=== PATIENT | female | born 1945 | race Caucasian/White ===

== ENCOUNTER 2019-11-17 15:37 | Outpatient (CLI) | payer MEDICARE, SELFPAY ==
--- NOTE | ~2019-11-17 | MM_ITS ---
EXAMINATION: MM screening [facility] BI w jose HISTORY: Screening mammogram TECHNIQUE: Craniocaudal and mediolateral oblique 3-D tomosynthesis images were obtained and synthetic 2-D images were generated. CAD analysis was submitted and interpreted. COMPARISON: 07/02/2018, 06/13/2017, 06/04/2016 BREAST PARENCHYMAL COMPOSITION: There are scattered areas of fibroglandular density. FINDINGS: There is no evidence of suspicious mass, calcification, or architectural distortion to sugg est malignancy in either breast. There has been no suspicious interval change. IMPRESSION: 1. No mammographic evidence of malignancy. 2. Recommend routine screening mammography in one year. BI-RADS Category 1: Negative Reviewed, dictated and finalized at location A. LLIGENCE RESEARCH SPECIALIST
== END 2019-11-17 15:38 | disposition home or self-care (01) ==
PROVIDERS: PCP Family Medicine; Visit Provider Obstetrics & Gynecology
DX: Z12.31 Encounter for screening mammogram for malignant neoplasm of breast (principal)
CPT/HCPCS: 77063; 77067

== ENCOUNTER 2021-02-19 14:37 | Outpatient (CLI) | payer MEDICARE, SELFPAY ==
--- NOTE | ~2021-02-19 | MM_ITS ---
EXAMINATION: MM screening [facility] BI w jose HISTORY: Screening mammogram TECHNIQUE: Craniocaudal and mediolateral oblique 3-D tomosynthesis images were obtained and synthetic 2-D images were generated. CAD analysis was submitted and interpreted. COMPARISON: Numerous , 06/2018, 06/11/2017 bilateral digital screening mammogram examinatio ns BREAST PARENCHYMAL COMPOSITION: There are scattered areas of fibroglandular density. FINDINGS: There is no evidence of suspicious mass, calcification, or architectural distortion to sugg est malignancy in either breast. There has been no suspicious interval change. IMPRESSION: 1. No mammographic evidence of malignancy. 2. Recommend routine screening mammography in one year. BI-RADS Category 1: Negative Reviewed, dictated and finalized at location A.
== END 2021-02-19 14:38 | disposition home or self-care (01) ==
LOC: ANHIMG 14:42
PROVIDERS: PCP Nurse Practitioner Family; Visit Provider Obstetrics & Gynecology
DX: Z12.31 Encounter for screening mammogram for malignant neoplasm of breast (principal)
CPT/HCPCS: 77063; 77067

== ENCOUNTER → 2021-03-08 14:57 | Outpatient (REF) | payer MEDICARE, SELFPAY | LOC: ANHLAB 14:57 | PROVIDERS: PCP Nurse Practitioner Family; Visit Provider Nurse Practitioner | DX: D49.2 Neoplasm of unspecified behavior of bone, soft tissue, and skin (principal); L57.0 Actinic keratosis | CPT/HCPCS: 88305 ==

== ENCOUNTER 2021-12-27 08:42 | Outpatient (CLI) | payer MEDICARE, SELFPAY ==
--- NOTE | 2021-12-27 08:58 | ECHO_ITS ---
Patient Info Name: Alejandrina Kim Age: 76 years : 1945 Gender: Female Ht: 64 in Wt: 160 lbs BSA: 1.83 m2 HR: 60 bpm BP: 171 / 97 mmHg Technical Quality: Good Exam Date: 12/27/2021 9:07 AM Exam Location: [facility] Patient Status: Outpatient Admit Date: 12/27/2021 Staff Ordering Physician: Lolly Cheng NP Field Sampling Technician: Carmelita Eldridge RDCS Attending Provider: Lolly Cheng NP Referring Physician: Prosper MUNOZ; Exam Type: CA echo doppler color flow Study Info Indications R01.1 - Cardiac murmur, unspecified Complete two-dimensional, color flow and Doppler transthoracic echocardiogram is performed. Summary 1. Complete two-dimensional, color flow and Doppler transthoracic echocardiogram is performed. 2. Left ventricular chamber dimension is normal. 3. Left ventricular systolic function is normal, estimated at 60-65%. 4. The left ventricular diastolic function is abnormal. 5. E/e' 21 is elevated. 6. Global longitudinal strain is normal at -17.4%. 7. Left atrial chamber dimension is moderately enlarged. 8. There is mild aortic valve sclerosis. 9. There is mild aortic valve regurgitation. 10. There is mild mitral valve regurgitation. 11. There is mild tricuspid valve regurgitation. 12. No pulmonary hypertension, estimated pulmonary arterial systolic pressure is 30 mmHg. Left Ventricle E/e' 21 is elevated. Global longitudinal strain is normal at -17.4%. Left ventricular chamber dimension is normal. Left ventricular systolic function is normal, estimated at 60-65%. The left ventricular diastolic function is abnormal. Right Ventricle Right ventricular chamber dimension is normal. Right ventricular systolic function is normal. Left Atria Left atrial chamber dimension is moderately enlarged. Right Atria Right atrial chamber dimension is normal. Aortic Valve The aortic valve is trileaflet. There is mild aortic valve sclerosis. There is no aortic valve stenosis. There is mild aortic valve regurgitation. Pulmonic Valve There is no pulmonic regurgitation. Mitral Valve There is no mitral valve stenosis. There is mild mitral valve regurgitation. Tricuspid Valve There is mild tricuspid valve regurgitation. No pulmonary hypertension, estimated pulmonary arterial systolic pressure is 30 mmHg. Pericardium/Pleural There is no pericardial effusion. Inferior Vena Cava Normal inferior vena cava with >50% collapse upon inspiration consistent with normal right atrial pressure, 5 mmHg. Aorta The aortic root size at the sinus of Valsalva is normal. Left Ventricular Outflow Tract Name Value Normal LVOT 2D LVOT Diameter 2.0 cm LVOT Doppler LVOT Peak Gradient 5 mmHg LVOT Mean Gradient 2 mmHg LVOT VTI 26 cm LVOT VTI/AV VTI Ratio 0.7 LVOT Stroke Volume 84 ml LVOT CO 4.4 l/min LVOT CI 2.4 l/min/m2 Pulmonic Valve
== END 2021-12-27 08:43 | disposition home or self-care (01) ==
LOC: ANHCARD 08:44
PROVIDERS: PCP Nurse Practitioner Family; Visit Provider Nurse Practitioner Family
DX: R01.1 Cardiac murmur, unspecified (principal); I08.3 Combined rheumatic disorders of mitral, aortic and tricuspid valves
CPT/HCPCS: 93306

== ENCOUNTER 2022-03-09 16:40 | Emergency (ER) | payer MEDICARE, SELFPAY ==
[2022-03-09 16:47] VITALS: BP 187/83; PULSE 87; RESP 16; TEMP 37.1; O2SAT 100
--- NOTE | 2022-03-09 16:57 | ED.GENADULT ---
HPI - General Adult General Chief complaint: Allergic Reaction Stated complaint: bee sting Time Seen by Provider: 03/09/22 16:46 Source: RN notes reviewed History of Present Illness HPI narrative: Patient presents emergency department from home for a bee sting. 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 and has an EpiPen but states that she did not use her EpiPen she denies any current shortness of breath or hives she denies swelling of the lips or tongue states she not take any medication at home patient does states she has swelling and erythema to her right finger Related Data Home Medications Medication Instructions Recorded Confirmed estradiol 2 mg tablet 2 mg PO DAILY 03/27/20 01/28/22 Allergies Allergy/AdvReac Type Severity Reaction Status Date / Time bee venom protein (honey bee) Allergy Intermediate Anaphylaxis Verified 03/09/22 17:19 Review of Systems Review of Systems: Gen.: Denies fevers or chills ENT: Denies congestion denies swelling of the lips or tongue Respiratory: Denies shortness of breath CV: Denies chest pain or palpitations GI: Denies abdominal pain nausea, emesis Musculoskeletal: See HPI Neuro: Denies numbness, tingling, weakness or focal weakness Skin: Denies rash Except as documented, all other systems reviewed and negative PMF Past Medical History Medical History Anxiety and depression (~1973) Arthralgia Benign essential hypertension (~1968) GERD without esophagitis (~2015) HLD (hyperlipidemia) (~2009) Lumbar back pain with radiculopathy affecting right lower extremity Menopause (~1999) Seasonal allergies Surgical History Surgical History S/P arthroscopy of knee (~1997) right S/P tonsillectomy (~1960) S/P vaginal hysterectomy (~1984) Family History Family History Mother Hypertension Grandparent Hypertension Diabetes mellitus Father Black lung disease Grandparent Diabetes mellitus Sibling Cancer Social History Social History Social History: (2019) Smoking status: Never smoker Alcohol intake: never Substance use: never Gender identity (if verbalized by the patient): Female Sexual Orientation (if Verbalized by the Patient): Straight or Heterosexual Spiritual care concerns: No Agree to blood products: Yes Exam Narrative: APPEARANCE: No acute distress, nontoxic, resting in bed EYES: EOMI HEENT: Normocephalic, atraumatic, OMM no swelling of the lips or tongue airway patent RESPIRATORY: No respiratory distress Clear to auscultation bilaterally with no rhonchi wheezing or rales. CARDIOVASCULAR: Regular rate and rhythm without murmurs rubs or gallops. ABDOMINAL: Soft, nontender, nondistended, no rebound or guarding MUSCULOSKELETAl: Moves all extremities. No clubbing, cyanosis or edema. The right middle finger has swelling erythema over the distal aspect down to the DIP joint, no stinger seen capillary refill less than 3 seconds remainder of the hand is normal-appearing NEURO: Awake and alert. Following commands, speech normal, no focal deficits SKIN:: Warm, dry. No rashes lesions or abrasions PSYCHIATRIC: Normal affect/mood, Course Course Emergency Course: Patient remained monitored in the emergency department. No sign of lips or tongue no shortness of breath no generalized hives feel she may be discharged this time follow-up as an outpatient she does have EpiPen at home Vital Signs Vital signs: Vit
[2022-03-09] MEDS: diphenhydrAMINE HCl CAP 25 MG CAPSULE PO (17:10)
[2022-03-09] MEDS: FAMOTIDINE 20 MG TABLET PO (17:10)
[2022-03-09] MEDS: predniSONE 20 MG TABLET 60 MG PO (17:10)
== END 2022-03-09 19:03 | disposition home or self-care (01) ==
PROVIDERS: Emergency Provider Emergency Medicine; PCP Family Medicine
DX: T63.441A Toxic effect of venom of bees, accidental (unintentional), initial encounter (principal); I10 Essential (primary) hypertension; E78.5 Hyperlipidemia, unspecified; K21.9 Gastro-esophageal reflux disease without esophagitis
CPT/HCPCS: 99283; A9270; J7512

== ENCOUNTER 2022-04-25 13:32 | Outpatient (CLI) | payer MEDICARE, SELFPAY ==
--- NOTE | ~2022-04-25 | DEXA_ITS ---
Bone Density Report Name: NAVEEN JUAREZ Age: 76 Sex: Female Ethnicity: White Date of : 1945 Indication: postmenopausal; screening for osteoporosis; height loss; prior fracture; hysterectomy; Referring Provider: BETHANY NEUMANN Study: Bone densitometry was performed. Exam Date: April 25, 2022 Accession number: [id number] Bone Density: Region BMD T-score Z-score Classification AP Spine(L1-L4) 0.988 -0.5 2.0 Normal Femoral Neck (Left) 0.726 -1.1 1.1 Osteopenia Total Hip (Left) 0.847 -0.8 1.2 Normal Femoral Neck (Right) 0.660 -1.7 0.5 Osteopenia Total Hip (Right) 0.810 -1.1 0.9 Osteopenia Total Hip Mean 0.828 -1.0 1.1 Normal World Health Organization criteria for BMD impression classify patients as: Normal (T-score at or above -1.0), Osteopenia (T-score between -1.0 and -2.5), or Osteoporosis (T-score at or below -2.5). 10-year Fracture Risk(1): Major Osteoporotic Fracture 19% Hip Fracture 4.4% Reported Risk Factors: [place] (), Neck BMD=0.660, BMI=29.1, previous fracture (1) FRAX(R) Version 3.08. Fracture probability calculated for an untreated patient. Fracture probability may be lower if the patient has received treatment. Clinical Information Provided by Patient: Has had a low trauma fracture Has used the following medications: HRT (i.e. estrogen/hormone therapy), Vitamin D Has the following medical conditions: Hysterectomy Patient maximum height was 65 Menopause Age: 39 Onset of menses at age 13 Number of children 2 Impression: The patient has low bone mass, based on the Right Femoral Neck T-score. The patient has an estimated ten-year risk of hip fracture of 4.4% and an estimated ten-year risk of major fracture of 19%, based on the WHO FRAX algorithm. The patient has risk factors, including: previous fracture. Discussion: BONE DENSITY IS LOW AT ONE OR MORE SKELETAL SITES. THE PATIENT'S BMD AND CLINICAL RISK FACTORS CONTRIBUTE TO THIS PATIENT'S INCREASED RISK OF FRACTURE. This patient's lowest T-score is low at one or more skeletal sites. It meets the World Health Organization's (WHO) criteria for ?low bone mass? (T-score between -1.0 and -2.5). The patient's 10-year risk of hip fracture as calculated by FRAX exceeds the threshold where pharmacological therapy is recommended by the National Osteoporosis Foundation (NOF). However, all treatment decisions require clinical judgment and consideration of individual patient factors, including patient preferences, comorbidities, previous drug use, risk factors not captured in the FRAX model (e.g., frailty, falls, vitamin D deficiency, increased bone turnover, interval significant decline in bone density) and possible under or overestimation of fracture risk by FRAX. The patient should follow a healthful lifest
--- NOTE | ~2022-04-25 | MM_ITS ---
EXAMINATION: MM screening [facility] BI w jose HISTORY: Screening mammogram TECHNIQUE: Craniocaudal and mediolateral oblique 3-D tomosynthesis images were obtained and synthetic 2-D images were generated. CAD analysis was submitted and interpreted. COMPARISON: 02/15/2021, , 07/02/2018 bilateral screening mammogram examinations BREAST PARENCHYMAL COMPOSITION: There are scattered areas of fibroglandular density. FINDINGS: Subtle possible microcalcifications versus artifacts are noted posteriorly in the inner lef t breast on CC view. Diagnostic left mammogram with magnification views is recommended, with ultrasou nd if required. Otherwise there is no evidence of suspicious mass, calcification, or architectural distortion to sugg est malignancy in either breast. There has been no other suspicious interval change. IMPRESSION: 1. Subtle microcalcifications versus artifacts in the posterior inner left breast on CC projection 2. Diagnostic left mammogram with magnification views is recommended, with ultrasound if required BI-RADS Category 0: Incomplete: Needs additional imaging evaluation. Reviewed, dictated and finalized at location A. IMPRESSION: 1. Subtle microcalcifications versus artifacts in the posterior inner left shawna st on CC projection 2. Diagnostic left mammogram with magnification views is recommended, with ultr asound if required BI-RADS Category 0: Incomplete: Needs additional imaging evaluation.
== END 2022-04-25 13:33 | disposition home or self-care (01) ==
PROVIDERS: PCP Family Medicine; Visit Provider Nurse Practitioner Family
DX: Z12.31 Encounter for screening mammogram for malignant neoplasm of breast (principal); Z78.0 Asymptomatic menopausal state; R92.8 Other abnormal and inconclusive findings on diagnostic imaging of breast; M85.89 Other specified disorders of bone density and structure, multiple sites
CPT/HCPCS: 77063; 77067; 77080

== ENCOUNTER 2022-05-07 12:32 | Outpatient (CLI) | payer MEDICARE, SELFPAY ==
--- NOTE | ~2022-05-07 | MM_ITS ---
EXAMINATION: MM diagnostic [facility] LT w jose HISTORY: Left breast calcifications on screening mammogram TECHNIQUE: Additional 3-Dviews tomosynthesis images of the left breast were performed and synthetic 2 -D images were generated. CAD analysis was submitted and interpreted. COMPARISON: 04/25/2022, 02/19/2021, 11/17/2019 FINDINGS: No suspicious calcifications are identified with magnification views of the left breast. Th ere is no suspicious mass or architectural distortion. IMPRESSION: 1. No mammographic evidence of malignancy. 2. Recommend routine screening mammography in one year. BI-RADS Category 1: Negative Reviewed, dictated and finalized at location A.
== END 2022-05-07 12:33 | disposition home or self-care (01) ==
PROVIDERS: PCP Family Medicine; Visit Provider Nurse Practitioner Family
DX: R92.8 Other abnormal and inconclusive findings on diagnostic imaging of breast (principal)
CPT/HCPCS: 77061; 77065; G0279

== ENCOUNTER 2022-08-13 11:12 | Outpatient (CLI) | payer MEDICARE, SELFPAY | END 2022-08-13 11:13 | disposition home or self-care (01) | PROVIDERS: PCP Family Medicine; Visit Provider Nurse Practitioner Family | DX: L29.0 Pruritus ani (principal) | CPT/HCPCS: 87177; 87209 ==

== ENCOUNTER 2022-12-19 09:17 | Outpatient (CLI) | payer MEDICARE, SELFPAY ==
[2022-12-19 19:02] LABS: Vitamin D 25 Hydroxy 63.5 ng/mL
[2022-12-19 19:30] LABS: Basophils Absolute Auto 0.1 K/mm3 (0.0-0.1); Eosinophils Absolute Auto 0.4 K/mm3 (0-0.3); Hematocrit 41.3 % (37.0-47.0); Hemoglobin 13.2 g/dL (12.0-15.0); Immature Granulocyte Absolute 0.03 K/mm3 (0.00-0.031); Immature Granulocyte Percent A 0.4 % (0-0.5); Lymphocytes Absolute Auto 1.26 K/mm3 (0.9-3.2); Lymphocytes Percent Auto 17.5 % (18.3-44.2); Mean Corpuscular Hemoglobin 29.7 pg (26-34); Mean Platelet Volume 10.3 fl (7.4-10.4); Monocytes Absolute Auto 0.8 K/mm3 (0.1-0.6); Monocytes Percent Auto 10.8 % (2.6-8.5); Neutrophils Absolute Auto 4.6 K/mm3 (1.3-6.7); Neutrophils Percent Auto 64.3 % (45.5-73.1); Platelet Count Result 313 k/mm3 (150-375); Red Blood Count 4.44 M/mm3 (4.2-5.4); White Blood Count 7.2 K/mm3 (4.5-10.0)
[2022-12-19 19:37] LABS: Alanine Aminotransferase 165 U/L (6-35); Albumin Level 4.3 g/dL (3.5-5.1); Alkaline Phosphatase 197 U/L (38-126); Anion Gap 10 mmol/L (8-16); Aspartate Amino Transferase 148 U/L (14-36); Bilirubin,Total 0.6 mg/dL (0.2-1.3); Blood Urea Nitrogen 13 mg/dL (7-17); Calcium 9.1 mg/dL (8.4-10.2); Carbon Dioxide 25 mmol/L (22-30); Chloride 104 mmol/L (98-107); Cholesterol 221 mg/dL (0-200); Estimated Glomerular Filt Rate > 60; Glucose 86 mg/dL (65-110); HDL Direct 85 mg/dL; Potassium 4.1 mmol/L (3.4-5.0); Sodium 139 mmol/L (137-145); Triglycerides 77 mg/dL (<150)
[2022-12-19 19:48] LABS: LDL Cholesterol Direct 92 mg/dL
== END 2022-12-19 09:18 | disposition home or self-care (01) ==
LOC: ANHGOSHLAB 09:18
PROVIDERS: PCP Family Medicine; Visit Provider Nurse Practitioner Family
DX: I10 Essential (primary) hypertension (principal); E55.9 Vitamin D deficiency, unspecified; E78.5 Hyperlipidemia, unspecified; R53.83 Other fatigue
CPT/HCPCS: 36415; 80053; 80061; 82306; 82607; 84443; 85025

== ENCOUNTER 2022-12-26 10:59 | Outpatient (CLI) | payer MEDICARE, SELFPAY ==
[2022-12-26 18:52] LABS: LDL Cholesterol Direct 92 mg/dL
[2022-12-26 20:18] LABS: Alanine Aminotransferase 47 U/L (6-35); Albumin Level 4.2 g/dL (3.5-5.1); Alkaline Phosphatase 152 U/L (38-126); Anion Gap 8 mmol/L (8-16); Aspartate Amino Transferase 27 U/L (14-36); Bilirubin,Total 0.7 mg/dL (0.2-1.3); Blood Urea Nitrogen 14 mg/dL (7-17); Calcium 9.2 mg/dL (8.4-10.2); Carbon Dioxide 29 mmol/L (22-30); Chloride 101 mmol/L (98-107); Cholesterol 203 mg/dL (0-200); Estimated Glomerular Filt Rate > 60; Glucose 92 mg/dL (65-110); HDL Direct 78 mg/dL; Potassium 4.1 mmol/L (3.4-5.0); Sodium 138 mmol/L (137-145); Triglycerides 76 mg/dL (<150)
== END 2022-12-26 11:00 | disposition home or self-care (01) ==
LOC: ANHGOSHLAB 11:00
PROVIDERS: Visit Provider Internal Medicine Cardiovascular Disease
DX: E78.5 Hyperlipidemia, unspecified (principal)
CPT/HCPCS: 36415; 80053; 80061

== ENCOUNTER → 2022-12-26 11:09 | Outpatient (CLI) | payer MEDICARE, SELFPAY ==
--- NOTE | ~2022-12-26 | US_ITS ---
Limited Abdominal Sonogram: Real-time sonographic imaging of the right upper quadrant was performed. Clinical History: Abnormal blood chemistry Findings: The liver appears normal with no evidence of mass lesion or bile duct dilatation. Main por polly vein demonstrates normal direction of flow. The gallbladder is completely filled with shadowing s tones. No definite gallbladder wall thickening. The common bile duct measures 4 mm. The visualized p ancreas, aorta, and IVC are unremarkable. Impression: Cholelithiasis. Reviewed, dictated and finalized at location M. Impression: Cholelithiasis.
== END ==
PROVIDERS: PCP Family Medicine; Visit Provider Family Medicine
DX: R79.89 Other specified abnormal findings of blood chemistry (principal); K80.20 Calculus of gallbladder without cholecystitis without obstruction
CPT/HCPCS: 76705

== ENCOUNTER 2023-05-05 13:36 | Outpatient (CLI) | payer MEDICARE, SELFPAY | END 2023-05-05 13:37 | disposition home or self-care (01) | LOC: ANHGOSHLAB 13:38 | PROVIDERS: PCP Family Medicine; Visit Provider Nurse Practitioner Family | DX: E53.8 Deficiency of other specified B group vitamins (principal) | CPT/HCPCS: 36415; 82607 ==

== ENCOUNTER 2023-05-27 14:00 | Outpatient (CLI) | payer MEDICARE, SELFPAY ==
[2023-05-27 15:31] LABS: Alanine Aminotransferase 16 U/L (6-35); Albumin Level 4.3 g/dL (3.5-5.1); Alkaline Phosphatase 59 U/L (38-126); Aspartate Amino Transferase 32 U/L (14-36); Bilirubin,Total 0.4 mg/dL (0.2-1.3)
[2023-05-27 19:49] LABS: Hepatitis B Surface Antigen Negative (Negative)
[2023-05-27 19:55] LABS: HAV RESULT Negative (Negative); Hepatitis B Core IgM Result Negative (Negative)
[2023-05-27 20:07] LABS: Hepatitis C Virus Antibody Negative (Negative)
== END 2023-05-27 14:01 | disposition home or self-care (01) ==
LOC: ANHGOSHLAB 14:03
PROVIDERS: PCP Family Medicine; Visit Provider Internal Medicine Gastroenterology
DX: R74.01 Elevation of levels of liver transaminase levels (principal)
CPT/HCPCS: 36415; 80074; 80076

== ENCOUNTER → 2023-06-09 12:44 | Outpatient (CLI) | payer MEDICARE, SELFPAY ==
--- NOTE | ~2023-06-09 | CT_ITS ---
EXAMINATION: CT sinus wo con DATE: 06/09/2023 13:03 INDICATION: Altered sense of smell and taste. TECHNIQUE: Computed tomography (CT) of the paranasal sinuses was performed without intravenous contra st. The dose-length product was 370.36 mGy-cm. Automated exposure control and iterative reconstructio n technique were employed. COMPARISON: CT dated 10/12/2004 FINDINGS: There is a air-fluid level with mucosal thickening in the sphenoid sinuses. There is mild e thmoidal mucosal thickening. No mucoperiosteal reaction. Rightward nasal septal deviation. Ostiomeata l units are patent. Mastoids are pneumatized. IMPRESSION: 1. Mild sinusitis. Reviewed, dictated and finalized at location B. IMPRESSION: 1. Mild sinusitis.
== END ==
PROVIDERS: PCP Family Medicine; Visit Provider Otolaryngology
DX: R43.8 Other disturbances of smell and taste (principal); J32.9 Chronic sinusitis, unspecified
CPT/HCPCS: 70486

== ENCOUNTER 2023-07-18 14:43 | Outpatient (CLI) | payer MEDICARE, SELFPAY | END 2023-07-18 14:44 | disposition home or self-care (01) | LOC: ANHAUDASC 14:44 | PROVIDERS: PCP Family Medicine; Visit Provider Otolaryngology | DX: H90.6 Mixed conductive and sensorineural hearing loss, bilateral (principal) | CPT/HCPCS: 92557; 92567 ==

== ENCOUNTER 2023-09-17 13:24 | Outpatient (CLI) | payer MEDICARE, SELFPAY ==
--- NOTE | ~2023-09-17 | MM_ITS ---
EXAMINATION: MM screening [facility] BI w jose HISTORY: Screening mammogram TECHNIQUE: Craniocaudal and mediolateral oblique 3-D tomosynthesis images were obtained and synthetic 2-D images were generated. CAD analysis was submitted and interpreted. COMPARISON: 05/17/2022 diagnostic left mammogram 04/25/2022, 02/15/2021, 11/17/2019 bilateral screening mammogram examinations BREAST PARENCHYMAL COMPOSITION: There are scattered areas of fibroglandular density. FINDINGS: There is no evidence of suspicious mass, calcification, or architectural distortion to sugg est malignancy in either breast. There has been no suspicious interval change. IMPRESSION: 1. No mammographic evidence of malignancy. 2. Recommend routine screening mammography in one year. BI-RADS Category 1: Negative Reviewed, dictated and finalized at location A. ETOLOGIST
== END 2023-09-17 13:25 | disposition home or self-care (01) ==
LOC: ANHIMG 13:31
PROVIDERS: PCP Family Medicine; Visit Provider Obstetrics & Gynecology
DX: Z12.31 Encounter for screening mammogram for malignant neoplasm of breast (principal)
CPT/HCPCS: 77063; 77067

== ENCOUNTER 2023-11-04 15:01 | Outpatient (CLI) | payer MEDICARE, SELFPAY ==
[2023-11-04 20:10] LABS: Alanine Aminotransferase 20 U/L (6-35); Albumin Level 4.1 g/dL (3.5-5.1); Alkaline Phosphatase 64 U/L (38-126); Anion Gap 5 mmol/L (8-16); Aspartate Amino Transferase 37 U/L (14-36); Bilirubin,Total 0.5 mg/dL (0.2-1.3); Blood Urea Nitrogen 14 mg/dL (7-17); Calcium 9.8 mg/dL (8.4-10.2); Carbon Dioxide 30 mmol/L (22-30); Chloride 103 mmol/L (98-107); Estimated Glomerular Filt Rate > 60; Glucose 95 mg/dL (65-110); Potassium 4.1 mmol/L (3.4-5.0); Sodium 138 mmol/L (137-145)
[2023-11-04 20:18] LABS: Basophils Absolute Auto 0.1 K/mm3 (0.0-0.1); Basophils Percent Auto 0.7 % (0.2-1.2); Eosinophils Absolute Auto 0.3 K/mm3 (0-0.3); Eosinophils Percent Auto 3.8 % (0-4.4); Hematocrit 41.6 % (37.0-47.0); Immature Granulocyte Absolute 0.03 K/mm3 (0.00-0.031); Immature Granulocyte Percent A 0.4 % (0-0.5); Lymphocytes Absolute Auto 2.24 K/mm3 (0.9-3.2); Lymphocytes Percent Auto 27.8 % (18.3-44.2); Mean Corpuscular HGB Conc 31.3 g/dl (32-36); Mean Corpuscular Hemoglobin 29.8 pg (26-34); Mean Corpuscular Volume 95.4 fl (80-100); Mean Platelet Volume 10.4 fl (7.4-10.4); Monocytes Absolute Auto 0.8 K/mm3 (0.1-0.6); Monocytes Percent Auto 9.9 % (2.6-8.5); Neutrophils Absolute Auto 4.6 K/mm3 (1.3-6.7); Neutrophils Percent Auto 57.4 % (45.5-73.1); Platelet Count Result 341 k/mm3 (150-375); Red Blood Count 4.36 M/mm3 (4.2-5.4); Red Cell Distribution Width 13.4 % (11.5-14.5); White Blood Count 8.1 K/mm3 (4.5-10.0)
[2023-11-07 23:39] LABS: Vitamin D 1,25 (OH)2 Total 31 pg/mL (18-72); Vitamin D2 1,25 (OH)2 <8 pg/mL; Vitamin D3 1,25 (OH)2 31 pg/mL
== END 2023-11-04 15:02 | disposition home or self-care (01) ==
LOC: ANHGOSHLAB 15:02
PROVIDERS: PCP Family Medicine; Visit Provider Nurse Practitioner Family
DX: B89 Unspecified parasitic disease (principal); E55.9 Vitamin D deficiency, unspecified; R53.83 Other fatigue; R82.90 Unspecified abnormal findings in urine
CPT/HCPCS: 36415; 80053; 82607; 82652; 85025; 87086

== ENCOUNTER 2024-02-13 13:18 | Outpatient (CLI) | payer MEDICARE, SELFPAY ==
--- NOTE | ~2024-02-13 | XR_ITS ---
EXAMINATION: XR_KNEE1-2VLT_CR DATE: 02/13/2024 13:50 INDICATION: Knee pain. TECHNIQUE: 2 views of left knee standing were obtained. COMPARISON: None. FINDINGS: There is varus angulation at the knee. No fracture. There is moderate osteoarthritis of med ial compartment and mild osteoarthritis of lateral and patellofemoral compartments. There is a small knee joint effusion. IMPRESSION: 1. Moderate left knee osteoarthritis. 2. Small left knee joint effusion. Reviewed, dictated and finalized at location E.
--- NOTE | ~2024-02-13 | XR_ITS ---
EXAMINATION: XR_KNEE1-2VRT_CR DATE: 02/13/2024 13:50 INDICATION: Right knee pain. TECHNIQUE: 2 views of right knee standing were obtained. COMPARISON: None. FINDINGS: There is varus angulation at the knee. No fracture. There is severe osteoarthritis of media l compartment and mild osteoarthritis of lateral and patellofemoral compartments. There is a small kn ee joint effusion. IMPRESSION: 1. Severe right knee osteoarthritis. 2. Small right knee joint effusion. Reviewed, dictated and finalized at location E.
== END 2024-02-13 13:19 | disposition home or self-care (01) ==
PROVIDERS: PCP Family Medicine; Visit Provider Nurse Practitioner Family
DX: M17.0 Bilateral primary osteoarthritis of knee (principal); M25.462 Effusion, left knee; M25.461 Effusion, right knee
CPT/HCPCS: 73560

== ENCOUNTER 2024-07-30 08:39 | Outpatient (CLI) | payer MEDICARE, SELFPAY ==
[2024-07-30 14:24] LABS: Basophils Absolute Auto 0.1 K/mm3 (0.0-0.1); Basophils Percent Auto 0.7 % (0.2-1.2); Eosinophils Absolute Auto 0.2 K/mm3 (0-0.3); Eosinophils Percent Auto 2.2 % (0-4.4); Hematocrit 42.7 % (37.0-47.0); Hemoglobin 13.8 g/dL (12.0-15.0); Immature Granulocyte Absolute 0.01 K/mm3 (0.00-0.031); Immature Granulocyte Percent A 0.1 % (0-0.5); Lymphocytes Absolute Auto 1.72 K/mm3 (0.9-3.2); Lymphocytes Percent Auto 23.4 % (18.3-44.2); Mean Corpuscular HGB Conc 32.3 g/dl (32-36); Mean Corpuscular Hemoglobin 30.7 pg (26-34); Mean Corpuscular Volume 94.9 fl (80-100); Monocytes Absolute Auto 0.6 K/mm3 (0.1-0.6); Monocytes Percent Auto 8.7 % (2.6-8.5); Neutrophils Absolute Auto 4.8 K/mm3 (1.3-6.7); Neutrophils Percent Auto 64.9 % (45.5-73.1); Platelet Count Result 388 k/mm3 (150-375); Red Cell Distribution Width 13.5 % (11.5-14.5); White Blood Count 7.3 K/mm3 (4.5-10.0)
[2024-07-30 14:47] LABS: Alanine Aminotransferase 15 U/L (6-35); Albumin Level 4.5 g/dL (3.5-5.1); Alkaline Phosphatase 79 U/L (38-126); Anion Gap 9 mmol/L (4-12); Aspartate Amino Transferase 32 U/L (14-36); Bilirubin,Total 0.6 mg/dL (0.2-1.3); Blood Urea Nitrogen 13 mg/dL (7-17); Calcium 9.8 mg/dL (8.4-10.2); Carbon Dioxide 28 mmol/L (22-30); Chloride 102 mmol/L (98-107); Cholesterol 241 mg/dL (0-200); Estimated Glomerular Filt Rate 60; Glucose 92 mg/dL (65-110); HDL Direct 62 mg/dL; Potassium 3.9 mmol/L (3.4-5.0); Sodium 139 mmol/L (137-145); Triglycerides 78 mg/dL (<150)
[2024-07-30 14:50] LABS: Vitamin D 25 Hydroxy 42.3 ng/mL
[2024-07-30 14:58] LABS: LDL Cholesterol Direct 123 mg/dL
== END 2024-07-30 08:40 | disposition home or self-care (01) ==
LOC: ANHGOSHLAB 08:43
PROVIDERS: PCP Family Medicine; Visit Provider Nurse Practitioner Family
DX: E78.5 Hyperlipidemia, unspecified (principal); I10 Essential (primary) hypertension; E55.9 Vitamin D deficiency, unspecified
CPT/HCPCS: 36415; 80053; 80061; 82306; 84443; 85025

== ENCOUNTER 2025-06-23 11:00 | Outpatient (CLI) | payer MEDICARE, SELFPAY ==
[2025-06-23 17:20] LABS: Hematocrit 40.8 % (37.0-47.0); Hemoglobin 13.0 g/dL (12.0-15.0); Immature Granulocyte Percent A 0.4 % (0-0.5); Lymphocytes Absolute Auto 1.79 K/mm3 (0.9-3.2); Mean Corpuscular HGB Conc 31.9 g/dl (32-36); Mean Corpuscular Hemoglobin 30.0 pg (26-34); Mean Corpuscular Volume 94.2 fl (80-100); Nucleated Red Blood Cells Absolute Auto 0.000 K/mm3 (0.0-0.012); Nucleated Red Blood Cells Perc 0.0 % (0.0-0.2); Platelet Count Result 424 k/mm3 (150-375); Red Blood Count 4.33 M/mm3 (4.2-5.4); White Blood Count 7.6 K/mm3 (4.5-10.0)
[2025-06-23 17:24] LABS: Alanine Aminotransferase 19 U/L (6-35); Albumin Level 4.5 g/dL (3.5-5.1); Alkaline Phosphatase 86 U/L (38-126); Anion Gap 10 mmol/L (4-12); Aspartate Amino Transferase 39 U/L (14-36); Bilirubin,Total 0.5 mg/dL (0.2-1.3); Blood Urea Nitrogen 10 mg/dL (7-17); Calcium 9.6 mg/dL (8.4-10.2); Carbon Dioxide 25 mmol/L (22-30); Chloride 104 mmol/L (98-107); Cholesterol 224 mg/dL (0-200); Estimated Glomerular Filt Rate 57; Glucose 100 mg/dL (65-110); HDL Direct 57 mg/dL; Magnesium 2.0 mg/dL (1.6-2.3); Potassium 4.2 mmol/L (3.4-5.0); Sodium 139 mmol/L (137-145); Total Protein 7.9 g/dL (6.3-8.2); Triglycerides 59 mg/dL (<150)
[2025-06-23 17:54] LABS: Thyroid Stimulating Hormone Reflex 2.380 uIU/mL (0.465-4.68)
[2025-06-23 18:08] LABS: Hemoglobin A1C 5.2 % (<5.7)
[2025-06-23 18:34] LABS: Vitamin B12 299.0 pg/mL (239-931)
== END 2025-06-23 11:01 | disposition home or self-care (01) ==
LOC: ANHGOSHLAB 11:01
PROVIDERS: PCP Nurse Practitioner Family; Visit Provider Nurse Practitioner Family
DX: M17.9 Osteoarthritis of knee, unspecified (principal); I10 Essential (primary) hypertension; E78.5 Hyperlipidemia, unspecified; E55.9 Vitamin D deficiency, unspecified; R53.83 Other fatigue; L65.9 Nonscarring hair loss, unspecified; R73.9 Hyperglycemia, unspecified
CPT/HCPCS: 36415; 80053; 80061; 82306; 82607; 82746; 83036; 83735; 84207; 84443; 85025

== ENCOUNTER 2025-09-02 12:39 | Outpatient (CLI) | payer MEDICARE, SELFPAY ==
[2025-09-02 19:06] LABS: Add Urine Microscopic? YES; Appearance Urine Cloudy (Clear); Glucose Urine UA Negative (Negative); Leukocyte Esterase Ur 3+ LEU/UL (Negative); Nitrate Urine Negative (Negative); Specific Grav Ur 1.016 (1.001-1.035)
== END 2025-09-02 12:40 | disposition home or self-care (01) ==
LOC: ANHGOSHLAB 12:40
PROVIDERS: PCP Nurse Practitioner Family; Visit Provider Nurse Practitioner Family
DX: R30.0 Dysuria (principal)
CPT/HCPCS: 81001; 87086; 87147; 87186

== ENCOUNTER 2025-09-04 08:05 | Observation (INO) | payer MEDICARE, SELFPAY ==
[2025-09-04] VITALS (24 sets, daily range): BP systolic 145–179; BP diastolic 67–113; PULSE 61–79; RESP 12–22; TEMP 36.4–36.5; O2SAT 95–100; BMI 23.6
--- NOTE | ~2025-09-04 | XR_ITS ---
Examination: XR chest 1V portable Clinical History: AMS? Comparison: None Technique: Portable AP Findings: Heart size upper limit of normal. Lungs clear. No acute bony abnormality. IMPRESSION: 1. No acute cardiopulmonary findings given portable technique. Reviewed, dictated and finalized at location R. CE SERVICES REPRESENTATIVE
--- NOTE | ~2025-09-04 | MR_ITS ---
EXAM/PROCEDURE: MR brain/brain stem wo/w con HISTORY: neurocognitive decline COMPARISON: CT exam from September 04 TECHNIQUE: Pre and postcontrast enhanced brain MRI performed. FINDINGS: No restricted diffusion or acute ischemic event. No mass mass effect or bleed. No abnormal enhancing lesions on postcontrast sequences. Moderately severe diffuse periventricular T2 weighted hyperintense white matter changes are present. Hippocampal regions are symmetric. Brainstem and cerebellum are unremarkable. Normal paranasal caliber structures unremarkable. Basilar flow voids patent at the skull base. IMPRESSION: No acute ischemic event, mass or bleed; no abnormal enhancing lesions or masses. There is extensive T2 weighted hyperintense periventricular white matter changes in both hemispheres probably associated with chronic microvascular ischemic changes. Reviewed, dictated and finalized at location A. P FILLER IMPRESSION: No acute ischemic event, mass or bleed; no abnormal enhancing lesio ns or masses. There is extensive T2 weighted hyperintense periventricular white matter changes in both hemispheres probably associated with chronic microvascu lar ischemic changes.
--- NOTE | ~2025-09-04 | CT_ITS ---
CT HEAD NON-CONTRAST Clinical History: AMS; new hallucinations Comparison: None Technique: Unenhanced axial images skull base to vertex Coronal, sagittal reformats CT images acquired with automatic exposure control for dose reduction DLP: 605 mGy-cm Findings: Chronic white matter microvascular ischemic changes. Sulci, ventricles: Unremarkable. No intracerebral hemorrhage. No evidence acute territorial infarct. No mass effect, midline shift. Bony calvarium intact. Visualized paranasal sinuses: Clear. Mastoid air cells: Clear. IMPRESSION: 1. No acute intracranial findings. Reviewed, dictated and finalized at location R. E CHARGE RN
--- OUTSIDE RECORDS SUMMARY | 2025-09-04 08:11 | XMS_ITS | Clinical Summary ---
Author Organization [employer] [facility] Address [address] Attn: Epic Prelude ADT MELINDA BONNER [id number] Care Team Providers Care Bus Trolley And Taxi Instructor Name Role Phone Unavailable Primary Care Provider Unavailabl e Social History Tobacco Use Types Packs/Day Years Used Date Smoking Tobacco: Never Assessed Comments Unknown Sex and Gender Information Value Date Recorded Sex Assigned at Not on file Legal Sex Female 3:18 AM CHEMISTRY INTERN Gender Identity Not on file Sexual Orientation Not on file Plan of Treatment Health Maintenance Due Date Last Done Comments DTAP/TDAP/TD VACCINES (1 - Tdap) 1963 PNEUMOCOCCAL VACCINE 50+ YEARS (1 of 1 - PCV) 05/01/19 94 ZOSTER VACCINE (1 of 2) 1994 OSTEOPOROSIS SCREENING 2009 RSV VACCINE (60+ or ) (1 - 1-dose 75+ series) 2019 INFLUENZA VACCINE (#1) 2025
--- OUTSIDE RECORDS SUMMARY | 2025-09-04 08:11 | XMS_ITS | Encounter Summary ---
Author Organization [facility] Address [address] Attn: Epic [place] [address] Care Team Providers Care Water Attendant Name Role Phone Unavailable Primary Care Provider Unavailabl e Encounter Details Date Type Department Care Team (Late st Contact Info) Description 07/22/1991 Outpatient Historical Tung Doherty MD 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
--- NOTE | 2025-09-04 09:56 | ECG_ITS ---
Test Date: 2025-09-04 10:42:41 Measurements Intervals [place] Rate: 64 P: 40 TN: 164 QRS: -10 QRSD: 101 T: 1 QT: 424 QTc: 438 Interpretive Statements SINUS RHYTHM DELAYED PRECORDIAL R/S TRANSITION LEFT VENTRICULAR HYPERTROPHY NONSPECIFIC T-WAVE ABNORMALITY- ANTEROLAT/INF LEADS BASELINE ARTIFACT- I, II, III, AVR, AVL, AVF, V1-V6 BORDERLINE ECG No previous ECG available for comparison Electronically Signed On 09-04-2025 19:20:30 SURGICAL PATHOLOGIST by Ravin Cool D.O.
[2025-09-04 10:36] LABS: Hematocrit 37.8 % (37.0-47.0); Hemoglobin 12.6 g/dL (12.0-15.0); Immature Granulocyte Percent A 0.5 % (0-0.5); Lymphocytes Absolute Auto 1.50 K/mm3 (0.9-3.2); Mean Corpuscular HGB Conc 33.3 g/dl (32-36); Mean Corpuscular Hemoglobin 30.5 pg (26-34); Mean Corpuscular Volume 91.5 fl (80-100); Nucleated Red Blood Cells Absolute Auto 0.000 K/mm3 (0.0-0.012); Nucleated Red Blood Cells Perc 0.0 % (0.0-0.2); Platelet Count Result 349 k/mm3 (150-375); Red Blood Count 4.13 M/mm3 (4.2-5.4); White Blood Count 7.9 K/mm3 (4.5-10.0)
[2025-09-04 10:48] LABS: Alanine Aminotransferase 17 U/L (6-35); Albumin Level 4.0 g/dL (3.5-5.1); Alkaline Phosphatase 108 U/L (38-126); Anion Gap 8 mmol/L (4-12); Aspartate Amino Transferase 23 U/L (14-36); Bilirubin,Total 0.9 mg/dL (0.2-1.3); Blood Urea Nitrogen 12 mg/dL (7-17); Calcium 9.5 mg/dL (8.4-10.2); Carbon Dioxide 24 mmol/L (22-30); Chloride 106 mmol/L (98-107); Estimated CRCL calculation 34 ml/min; Estimated Glomerular Filt Rate 54; Glucose 123 mg/dL (65-110); INR 1.2; Potassium 3.4 mmol/L (3.4-5.0); Prothrombin Time 15.3 Seconds (11.1-14.7); Sodium 138 mmol/L (137-145); Total Protein 6.9 g/dL (6.3-8.2)
[2025-09-04 10:49] LABS: Partial Thromboplastin Time 32.7 Seconds (22.3-36.8)
[2025-09-04 10:54] LABS: Cannabinoid Screen Urine Negative (Negative)
[2025-09-04 10:56] LABS: Acetaminophen < 10 ug/mL (10-30); Salicylate < 1.0 mg/dL (2-20)
[2025-09-04 11:14] LABS: Add Urine Microscopic? YES; Appearance Urine Cloudy (Clear); Glucose Urine UA Negative (Negative); Leukocyte Esterase Ur 1+ LEU/UL (Negative); Need Manual Microscopic Reviewed; Nitrate Urine Negative (Negative); Specific Grav Ur 1.017 (1.001-1.035)
[2025-09-04 11:21] LABS: Thyroid Stimulating Hormone 2.020 uIU/mL (0.465-4.680)
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
--- NOTE | 2025-09-04 12:50 | PCCCNOTE ---
Spoke with pt and pt's friend Regan Azul [phone] regarding current living arrangements. Friend Regan does not live with pt and is only a friend. Pt has no other relative or friend in the area. and her two sons have pasted away one from diabetes and one from heart attack. Pt is currently living in home in [place] and living conditions are poor due to hoarding and maintenance needs. She also gets worried about people entering the home. Pt would need lots of assistance (cleaning, shopping, maintenance) to stay in the home. Pt is open to independent / assisted living, but is overwhelmed at current time and needs guidance. The friend and pt have made contact with the Department of Aging and have a case packer Yarelis Green [phone] who may be able to assist.
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
--- NOTE | 2025-09-04 15:50 | ADMGEN ---
This patient, Alejandrina Bolton, was admitted to Medical Room 253-01. Patient/family oriented to hospital policies and general routines including ID bracelet, bed and alarms, visiting hours, pain management, procedures, bathroom and other care routines, personal items, smoking policy, room service/diet, and visiting hours. Information on how to activate the Rapid Response Team has been discussed. Patient/Family are encouraged to report perceived risks to care and to ask questions if they do not understand what they are told or what they should do.
--- NOTE | 2025-09-04 21:35 | P.HP_ITS ---
H&P: HPI History of Present Illness Date/Time: 09/04/25 21:35 Chief Complaint: Altered mental status Narrative: 80-year-old female with PMH arthralgia, depression and anxiety, hyperlipidemia, hypertension, GERD without esophagitis presents to [facility] ER on 09/04/2025. The patient lives alone. A friend has been worried about her. Patient has been calling him about 10-12 times per day. When the friend checked on her the entire place was a mess. The shower was barely working. It was noted the patient was seeing people and hearing people talk. On presentation the patient was disheveled and smells like urine. After arriving to the floors the patient examination is quite unremarkable. She was A&O x3, she is aware she has been hearing and seeing things which are not there. She tells me her and son in the past few years and she has had a stressful time with that as well as inheriting her son's finances and she does not know how to handle them. She denies fever, shortness of breath, chest pain, change in vision, syncope, drug use, alcohol use, tobacco use, diarrhea, abdominal pain, rashes on her body. She only admits to having dry skin. ER evaluation reveals temperature 97.5? F, respiratory rate 16, 97% oxygen saturation on room air. Blood pressure 145/67. WBC 7900, hemoglobin 12.6, platelets 349, INR 1.2, Chem 7 unremarkable, glucose 123, normal LFTs, vitamin-D 40.5, TSH 2.02, urinalysis positive for cloudy appearance, trace ketones, leukocyte esterase 1+, WBC 6-10, no urine bacteria, patient denies urinary symptoms. Drugs of abuse screen negative, salicylates and acetaminophen levels within normal limit, serum alcohol level within normal limit. Chest x-ray no acute findings, CT brain noncontrast no acute findings. Review of Systems Review of Systems: All systems reviewed & are unremarkable except as noted in HPI and below (Subjective) [facility] Past Medical History Medical History Bilateral knee pain Lumbar back pain with radiculopathy affecting right lower extremity Seasonal allergies Arthralgia Menopause (~1999) Anxiety and depression (~1973) HLD (hyperlipidemia) (~2009) Benign essential hypertension (~1968) GERD without esophagitis (~2015) Surgical History Surgical History S/P arthroscopy of knee (~1997) right S/P vaginal hysterectomy (~1984) S/P tonsillectomy (~1960) Family History Family History Mother Hypertension Grandparent Hypertension Diabetes mellitus Father Black lung disease Grandparent Diabetes mellitus Sibling Cancer Mother Hypertension Family history of elevated blood lipids Family history of arthritis Sibling Family history of lupus erythematosus Hypertension Family history of malignant neoplasm, Onset Age: 70 Grandparent Hypertension, Onset Age: 80 Cerebrovascular accident Diabetes mellitus, Onset Age: 80 Family history of arthritis, Onset Age: 80 Father Family history of emphysema, Onset Age: 80 Patient's father is , Onset Age: 80 Other Family history of diabetes mellitus in first degree relative Social History Social History Social History: (2019) Smoking status: Never smoker Second hand tobacco smoke exposure: No Alcohol intake: never Substance use: never Substance use type: does not use Lack of Transportation: No Lack of Food: Never True Current Housing: I Have Housing Concerned About Future Housing: No Difficulty Paying Gas/Electric Bills: No Difficulty Paying for Meds: No Currently Unemployed: No Education: High School Diploma/GED Difficulty w/ Childcare or Family Care: No Living arrangements: with family Occupation/Education: retired Gender identity (if verbalized by the patient): Female Sexual Orientation (if Verbalized by the Patient): Straight or Heterosexual Spiritual care concerns: No Agree to blood products: Yes Meds Home Medications and Allergies Home Medications ?Medication ?Instructions ?Recorded ?Confirmed ?Type epinephrine 0.3 mg/0.3 mL 0.3 mg (0.3 mL) IM ONCE #2 e a 03/22/22 09/04/25 Rx injection, auto-injector (EpiPen 2-Liu) cholecalciferol (vitamin D3) 50 50 mcg PO DAILY #1 cap 04/29/22 09/04/25 Rx mcg (2,000 unit) capsule alprazolam 0.25 mg tablet 0.25 mg PO DAILY PRN anxiety #30 02/14/25 09/04/25 Rx tabs mecobalamin (vitamin B12) 1,000 1,000 mcg sublingual D AILY #90 tabs 07/04/25 09/04/25 Rx mcg disintegrating tablet,sublingual losartan 100 mg tablet 100 mg PO DAILY #90 tabs 09/04/25 Rx pantoprazole 40 mg tablet,delayed 40 mg PO DAILY #90 t abs 07/18/25 09/04/25 Rx release Allergies Allergy/AdvReac Type Severity Reaction Status Date / Time bee venom protein (honey bee) Allergy Intermediate Anaphylaxis Verified 09/04/25 15:51 eplerenone AdvReac Mild tingling Verified 09/04/25 15:51 in mouth Vital Signs Vital Signs - 24 hr 09/04/25 08:15 09/04/25 09:55 09/04/25 09:56 Temperature 97.7 F Pulse Rate 79 72 73 Respiratory Rate 16 20 22 H Blood Pressure 166/82 H 161/83 H Pulse Oximetry 99 97 100 Oxygen Delivery Room Air 09/04/25 10:00 09/04/25 10:01 09/04/25 10:30 Temperature Pulse Rate 72 76 69 Respiratory Rate 16 20 13 Blood Pressure 178/84 H Pulse Oximetry 99 100 95 Oxygen Delivery 09/04/25 10:45 09/04/25 10:46 09/04/25 11:00 Temperature Pulse Rate 67 68 66 Respiratory Rate 12 13 14 Blood Pressure 173/113 H Pulse Oximetry 100 97 Oxygen Delivery 09/04/25 11:01 09/04/25 11:02 09/04/25 11:16 Temperature Pulse Rate 68 67 66 Respiratory Rate 15 12 21 H Blood Pressure 161/86 H 163/77 H Pulse Oximetry Oxygen Delivery 09/04/25 11:17 09/04/25 11:34 09/04/25 11:49 Temperature Pulse Rate 66 73 71 Respiratory Rate 19 14 16 Blood Pressure Pulse Oximetry Oxygen Delivery 09/04/25 12:13 09/04/25 12:15 09/04/25 12:16 Temperature Pulse Rate 73 73 75 Respiratory Rate 19 16 19 Blood Pressure 159/95 H Pulse Oximetry 99 99 100 Oxygen Delivery 09/04/25 12:30 09/04/25 12:31 09/04/25 14:59 Temperature Pulse Rate 74 76 75 Respiratory Rate 21 H 14 20 Blood Pressure 162/96 H 168/92 H Pulse Oximetry 100 100 Oxygen Delivery 09/04/25 15:56 09/04/25 17:49 09/04/25 19:56 Temperature 97.5 F L 97.5 F L Pulse Rate 71 61 Respiratory Rate 16 16 Blood Pressure 179/90 H 145/67 H Pulse Oximetry 97 100 Oxygen Delivery Room Air Exam Const: General: comfortable and no acute distress Other: A&O x4 HENMT: Mouth: Yes moist mucous membranes Eyes: Pupils: Equal, round and reactive pupils present Neck: Neck: supple Resp: Effort & Inspection: normal respiratory effort Auscultation: clear to auscultation bilaterally Cardio: Rate: regular rate Rhythm: regular rhythm GI: Inspection: non-distended GI Palp: Yes Soft to palpation : General: Yes bladder normal to palpation Neuro: General: deep tendon reflexes 2+ bilaterally Speech: normal speech Motor exam (neuro): 5/5 motor strength present throughout Sensory Exam: normal sensation Extrem: General: no edema Psych: Mental Status: mental status grossly normal Results Labs Labs: Short CBC 09/04/25 Range/Units 10:30 WBC 7.9 (4.5-10.0) K/mm3 Hgb 12.6 (12.0-15.0) g/dL Hct 37.8 (37.0-47.0) % Plt Count 349 (150-375) k/mm3 BMP 09/04/25 10:30 Sodium 138 Potassium 3.4 Chloride 106 Carbon Dioxide 24 BUN 12 Creatinine 0.99 Glucose 123 H Calcium 9.5 Liver Function 09/04/25 Range/Units 10:30 Total Bilirubin 0.9 (0.2-1.3) mg/dL AST 23 (14-36) U/L ALT 17 (6-35) U/L Alkaline Phosphatase 108 (38-126) U/L Albumin 4.0 (3.5-5.1) g/dL Urine 09/04/25 Range/Units 10:30 Urine Color Dark yellow (Yellow) Urine Appearance Cloudy H (Clear) Urine pH 5.5 (5.0-9.0) Ur Specific [place] 1.017 (1.001-1.035) Urine Protein 1+ H (Negative) mg/dL Urine Glucose (UA) Negative (Negative) mg/dL Assessment and Plan Assessment and plan (1) Anxiety and depression: Onset Date: ~1973 Code(s): F41.9 - Anxiety disorder, unspecified; F32.9 - Major depressive disorder, single episode, unspecified Status: Chronic (2) Hoarding behavior: Code(s): F42.3 - Hoarding disorder Status: Acute (3) Neurocognitive disorder: Code(s): R41.9 - Unspecified symptoms and signs involving cognitive functions and awareness Status: Acute Plan 80-year-old female with PMH arthralgia, depression and anxiety, hyperlipidemia, hypertension, GERD without esophagitis presents to [facility] ER on 09/04/2025. The patient lives alone. A friend has been worried about her. Patient has been calling him about 10-12 times per day. When the friend checked on her the entire place was a mess. The shower was barely working. It was noted the patient was seeing people and hearing people talk. On presentation the patient was disheveled and smells like urine. After arriving to the floors the patient examination is quite unremarkable. She was A&O x3, she is aware she has been hearing and seeing things which are not there. She tells me her and son in the past few years and she has had a stressful time with that as well as inheriting her son's finances and she does not know how to handle them. She denies fever, shortness of breath, chest pain, change in vision, syncope, drug use, alcohol use, tobacco use, diarrhea, abdominal pain, rashes on her body. She only admits to having dry skin. Denies suicidal/homicidal ideation. ER evaluation reveals temperature 97.5? F, respiratory rate 16, 97% oxygen saturation on room air. Blood pressure 145/67. WBC 7900, hemoglobin 12.6, platelets 349, INR 1.2, Chem 7 unremarkable, glucose 123, normal LFTs, vitamin-D 40.5, TSH 2.02, urinalysis positive for cloudy appearance, trace ketones, leukocyte esterase 1+, WBC 6-10, no urine bacteria, patient denies urinary symptoms. Drugs of abuse screen negative, salicylates and acetaminophen levels within normal limit, serum alcohol level within normal limit. Chest x-ray no acute findings, CT brain noncontrast no acute findings. ----- Patient unsafe to return home. Admission for further workup. Check vitamin B12, HIV, syphilis, ceruloplasmin. MRI brain. Psychiatry consult. Pending quad viral screen. Continue PROCESS SUPERVISOR Protonix, cyanocobalamin, cholecalciferol, Xanax p.r.n., losartan 100 mg p.o. q.day. ----- Patient wishes to be full code. SCDs. Fall precautions. Ambulate with assistance. Saline lock IV. Heart healthy diet. Time Spent with Patient Time with patient: less than 45 minutes Hospitalist MIPS Advance Care Plan I have confirmed that the patient's Advanced Care Plan is present, code status is documented, or surrogate decision maker is listed in patient medical record.: Yes Medication Reconciliation I have utilized all available resources to obtain, update and review the patients current medications (includes all prescriptions, OTC, herbals, cannabis, and nutritional supplements).: Yes
[2025-09-05 02:58] LABS: Influenza A QL RT-PCR Negative (Negative); Influenza B QL RT-PCR Negative (Negative); RSV RNA, RT-PCR Negative (Negative); SARS-CoV-2 RNA PCR Negative (Negative)
[2025-09-05 05:16] LABS: Hematocrit 36.8 % (37.0-47.0); Hemoglobin 11.8 g/dL (12.0-15.0); Immature Granulocyte Percent A 0.3 % (0-0.5); Lymphocytes Absolute Auto 1.62 K/mm3 (0.9-3.2); Mean Corpuscular HGB Conc 32.1 g/dl (32-36); Mean Corpuscular Hemoglobin 29.9 pg (26-34); Mean Corpuscular Volume 93.4 fl (80-100); Nucleated Red Blood Cells Absolute Auto 0.000 K/mm3 (0.0-0.012); Nucleated Red Blood Cells Perc 0.0 % (0.0-0.2); Platelet Count Result 319 k/mm3 (150-375); Red Blood Count 3.94 M/mm3 (4.2-5.4); White Blood Count 5.9 K/mm3 (4.5-10.0)
[2025-09-05 05:27] VITALS: BP 171/84; PULSE 62; RESP 16; TEMP 36.3; O2SAT 99
[2025-09-05 05:40] LABS: Anion Gap 6 mmol/L (4-12); Blood Urea Nitrogen 13 mg/dL (7-17); Calcium 9.0 mg/dL (8.4-10.2); Carbon Dioxide 26 mmol/L (22-30); Chloride 105 mmol/L (98-107); Estimated CRCL calculation 32 ml/min; Estimated Glomerular Filt Rate 49; Glucose 92 mg/dL (65-110); Magnesium 1.6 mg/dL (1.6-2.3); Potassium 2.9 mmol/L (3.4-5.0); Sodium 137 mmol/L (137-145)
[2025-09-05 06:16] LABS: HIV 1/2 Ab P24 Ag Result Negative (Negative)
[2025-09-05 06:38] LABS: Vitamin B12 > 1000.0 pg/mL (239-931)
--- NOTE | 2025-09-05 07:20 | P.PNIM_ITS ---
Assessment and Plan Assessment and Plan (1) Anxiety and depression: Onset Date: ~1973 Code(s): F41.9 - Anxiety disorder, unspecified; F32.9 - Major depressive disorder, single episode, unspecified Status: Chronic Assessment and Plan: 80-year-old female with PMH arthralgia, depression and anxiety, hyperlipidemia, hypertension, GERD without esophagitis presents for hallucinations, anxiety/depression, hoarding behavior. * Patient unsafe to return home * and son recently and she has a stressful time with that as well as inheriting her son's finances and she does not know how to handle them * Denies suicidal/homicidal ideation * Viral panel negative * vitamin B12 >1,000, continue cyanocobalamin * Xanax p.r.n * HIV negative, syphilis& ceruloplasmin pending * MRI brain/Psychiatry/quad viral consult pending (2) Hoarding behavior: Code(s): F42.3 - Hoarding disorder Status: Acute Assessment and Plan: * See above (3) Benign essential hypertension: Onset Date: ~1968 Code(s): I10 - Essential (primary) hypertension Status: Chronic Assessment and Plan: * losartan 100 mg p.o. q.day (4) HLD (hyperlipidemia): Onset Date: ~2009 Qualifiers: Hyperlipidemia type: unspecified Qualified Code(s): E78.5 - Hyperlipidemia, unspecified Code(s): E78.5 - Hyperlipidemia, unspecified Status: Chronic (5) GERD without esophagitis: Onset Date: ~2015 Code(s): K21.9 - Gastro-esophageal reflux disease without esophagitis Status: Chronic Assessment and Plan: * Continue PUBLIC WELFARE WORKER Protonix Medical Record Review I have reviewed the following patient records and this information was taken into consideration when formulating the assessment and plan.: previous labs and previous ER visits Subjective Date/time seen: 09/05/25 07:20 Interval history: 80-year-old female with PMH arthralgia, depression and anxiety, hyperlipidemia, hypertension, GERD without esophagitis presents to hospital, patient lives alone. A friend has been worried about her. 09/05/2025 Patient sitting comfortably in bed at time of examination. Denies any chest pain, shortness of breath, nausea/vomiting or abdominal pain. Talking with care coordination of time of exam, discussing placement options at this time. Brain MRI pending, psych consult pending as well. Hypokalemic - given 40meq PO K. Blood work and vitals otherwise wnl. Remains A&Ox3, however continues to have hallucinations. Review of Systems Review of Systems: All systems reviewed & are unremarkable except as noted in HPI and below (Subjective) Exam Const: General: comfortable and no acute distress Other: A&O x4 HENMT: Mouth: Yes moist mucous membranes Eyes: Pupils: Equal, round and reactive pupils present Neck: Neck: supple Resp: Effort & Inspection: normal respiratory effort Auscultation: clear to auscultation bilaterally Cardio: Rate: regular rate Rhythm: regular rhythm GI: Inspection: non-distended : General: Yes bladder normal to palpation Bimanual exam- vagina & uterus: bladder normal to palpation Neuro: General: deep tendon reflexes 2+ bilaterally Cranial nerves: Yes Equal, round and reactive pupils present Speech: normal speech Motor exam (neuro): 5/5 motor strength present throughout Sensory Exam: normal sensation Extrem: General: no edema Psych: Mental Status: mental status grossly normal Objective Data Vital Signs Vital Signs: Vital Signs - 24 hr 09/04/25 08:15 09/04/25 09:55 09/04/25 09:56 Temperature 97.7 F Pulse Rate 79 72 73 Respiratory Rate 16 20 22 H Blood Pressure 166/82 H 161/83 H Pulse Oximetry 99 97 100 Oxygen Delivery Room Air 09/04/25 10:00 09/04/25 10:01 09/04/25 10:30 Temperature Pulse Rate 72 76 69 Respiratory Rate 16 20 13 Blood Pressure 178/84 H Pulse Oximetry 99 100 95 Oxygen Delivery 09/04/25 10:45 09/04/25 10:46 09/04/25 11:00 Temperature Pulse Rate 67 68 66 Respiratory Rate 12 13 14 Blood Pressure 173/113 H Pulse Oximetry 100 97 Oxygen Delivery 09/04/25 11:01 09/04/25 11:02 09/04/25 11:16 Temperature Pulse Rate 68 67 66 Respiratory Rate 15 12 21 H Blood Pressure 161/86 H 163/77 H Pulse Oximetry Oxygen Delivery 09/04/25 11:17 09/04/25 11:34 09/04/25 11:49 Temperature Pulse Rate 66 73 71 Respiratory Rate 19 14 16 Blood Pressure Pulse Oximetry Oxygen Delivery 09/04/25 12:13 09/04/25 12:15 09/04/25 12:16 Temperature Pulse Rate 73 73 75 Respiratory Rate 19 16 19 Blood Pressure 159/95 H Pulse Oximetry 99 99 100 Oxygen Delivery 09/04/25 12:30 09/04/25 12:31 09/04/25 14:59 Temperature Pulse Rate 74 76 75 Respiratory Rate 21 H 14 20 Blood Pressure 162/96 H 168/92 H Pulse Oximetry 100 100 Oxygen Delivery 09/04/25 15:56 09/04/25 17:49 09/04/25 19:56 Temperature 97.5 F L 97.5 F L Pulse Rate 71 61 Respiratory Rate 16 16 Blood Pressure 179/90 H 145/67 H Pulse Oximetry 97 100 Oxygen Delivery Room Air 09/04/25 20:00 09/05/25 05:27 Temperature 97.3 F L Pulse Rate 61 62 Respiratory Rate 16 16 Blood Pressure 171/84 H Pulse Oximetry 100 99 Oxygen Delivery Room Air Intake/Output Intake/Output: Intake & Output 09/02/25 09/03/25 09/04/25 09/05/25 23:59 23:59 23:59 23:59 Intake Total 350 Output Total 0 Balance 0 350 Meds/Results Medications: Active Medications Generic Name Dose Route Start Last Admin Trade Name Freq PRN Reason Stop Dose Admin Alprazolam 0.25 mg 09/04/25 21:27 Alprazolam (*Crx) 0.25 Mg Tablet PO DAILY PRN Anxiety Cyanocobalamin 1,000 mcg 09/05/25 09:00 Cyanocobalamin 1,000 Mcg Tablet PO QAM [facility] Losartan Potassium 100 mg 09/05/25 09:00 Losartan Potassium 100 Mg Tablet PO DAILY [facility] Pantoprazole Sodium 40 mg 09/05/25 09:00 Pantoprazole 40 Mg Tablet PO DAILY [facility] Potassium Chloride 40 meq 09/05/25 07:19 Potassium Chloride 20 Meq Er Tablet PO 09/05/25 07:20 ONCE ONE Vitamin D 50 mcg 09/05/25 09:00 Cholecalciferol (Vitamin D3) 25 Mcg (1,000 Units) Tablet PO DAILY [facility] Radiology Results: ITS Impressions Head CT 09/04/25 10:16 IMPRESSION: 1. No acute intracranial findings. Chest X-Ray 09/04/25 11:50 IMPRESSION: 1. No acute cardiopulmonary findings given portable technique. Labs Labs: Laboratory Results - last 24 hr 09/04/25 09/04/25 09/04/25 10:30 19:53 21:19 WBC 7.9 RBC 4.13 L Hgb 12.6 Hct 37.8 MCV 91.5 MCH 30.5 MCHC 33.3 RDW 13.2 Plt Count 349 MPV 10.3 Immature Gran % (Auto) 0.5 Neut % (Auto) 69.4 Lymph % (Auto) 19.1 [place] % (Auto) 8.7 H Eos % (Auto) 1.7 Baso % (Auto) 0.6 Lymph # (Auto) 1.50 [place] # (Auto) 0.7 H Eos # (Auto) 0.1 Baso # (Auto) 0.1 Abs Immat Gran (auto) 0.04 H Absolute Neuts (auto) 5.5 Absolute Nucleated RBC 0.000 Nucleated RBC % 0.0 PT 15.3 H INR 1.2 APTT 32.7 Sodium 138 Potassium 3.4 Chloride 106 Carbon Dioxide 24 Anion Gap 8 BUN 12 Creatinine 0.99 Estim Creat Clear Calc 34 Estimated GFR 54 L Glucose 123 H Calcium 9.5 Magnesium Total Bilirubin 0.9 AST 23 ALT 17 Alkaline Phosphatase 108 Total Protein 6.9 Albumin 4.0 Vitamin B12 Vitamin D 25-Hydroxy 40.5 TSH 2.020 Urine Color Dark yellow Urine Appearance Cloudy H Urine pH 5.5 Ur Specific [place] 1.017 Urine Protein 1+ H Urine Glucose (UA) Negative Urine Ketones Trace H Ur Blood (Man) Negative Urine Nitrate Negative Urine Bilirubin Negative Urine Urobilinogen 1.0 Add Ur Microanalysis Reviewed Leukocyte Esterase Rfl 1+ H Urine RBC 3-5 H Urine WBC 6-10 H Ur Squamous Epith Cells None seen Ur Transition Epith Cell Rare Urine Bacteria None seen Urine Casts 11-20 Hyaline Casts Present Salicylates < 1.0 L Urine Opiates Screen Negative Urine Methadone Screen Negative Acetaminophen < 10 L Ur Barbiturates Screen Negative Ur Phencyclidine Scrn Negative Ur Amphetamine Screen Negative U Benzodiazepines Scrn Negative Urine Cocaine Screen Negative U Cannabinoids Screen Negative Ethyl Alcohol < 10 HIV 1&2 Ab/P24 Ag 4thGn Influenza A (RT-PCR) Negative Influenza B (RT-PCR) Negative RSV (RT-PCR) Negative SARS-CoV-2 RNA (RT-PCR) Negative 09/05/25 04:52 WBC 5.9 RBC 3.94 L Hgb 11.8 L Hct 36.8 L MCV 93.4 MCH 29.9 MCHC 32.1 RDW 13.2 Plt Count 319 MPV 10.5 H Immature Gran % (Auto) 0.3 Neut % (Auto) 56.6 Lymph % (Auto) 27.4 [place] % (Auto) 9.8 H Eos % (Auto) 4.7 H Baso % (Auto) 1.2 Lymph # (Auto) 1.62 [place] # (Auto) 0.6 Eos # (Auto) 0.3 Baso # (Auto) 0.1 Abs Immat Gran (auto) 0.02 Absolute Neuts (auto) 3.4 Absolute Nucleated RBC 0.000 Nucleated RBC % 0.0 PT INR APTT Sodium 137 Potassium 2.9 L Chloride 105 Carbon Dioxide 26 Anion Gap 6 BUN 13 Creatinine 1.07 H Estim Creat Clear Calc 32 Estimated GFR 49 L Glucose 92 Calcium 9.0 Magnesium 1.6 Total Bilirubin AST ALT Alkaline Phosphatase Total Protein Albumin Vitamin B12 > 1000.0 H Vitamin D 25-Hydroxy TSH Urine Color Urine Appearance Urine pH Ur Specific [place] Urine Protein Urine Glucose (UA) Urine Ketones Ur Blood (Man) Urine Nitrate Urine Bilirubin Urine Urobilinogen Add Ur Microanalysis Leukocyte Esterase Rfl Urine RBC Urine WBC Ur Squamous Epith Cells Ur Transition Epith Cell Urine Bacteria Urine Casts Hyaline Casts Salicylates Urine Opiates Screen Urine Methadone Screen Acetaminophen Ur Barbiturates Screen Ur Phencyclidine Scrn Ur Amphetamine Screen U Benzodiazepines Scrn Urine Cocaine Screen U Cannabinoids Screen Ethyl Alcohol HIV 1&2 Ab/P24 Ag 4thGn Negative Influenza A (RT-PCR) Influenza B (RT-PCR) RSV (RT-PCR) SARS-CoV-2 RNA (RT-PCR)
[2025-09-05] MEDS: CHOLECALCIFEROL (VITAMIN D3) 25 MCG (1,000 UNITS) TABLET 50 MCG PO (08:15)
[2025-09-05] MEDS: CYANOCOBALAMIN 1,000 MCG TABLET 1000 MCG PO (08:15)
[2025-09-05] MEDS: POTASSIUM CHLORIDE 20 MEQ ER TABLET 40 MEQ PO (08:15)
[2025-09-05] MEDS: LOSARTAN POTASSIUM 100 MG TABLET PO (08:15)
[2025-09-05] MEDS: PANTOPRAZOLE 40 MG TABLET PO (08:15)
[2025-09-05] MEDS: ALPRAZolam (*CRX) 0.25 MG TABLET PO (12:12)
[2025-09-05 14:00] VITALS: BP 129/67; PULSE 69; RESP 15; TEMP 36.3; O2SAT 99
--- NOTE | 2025-09-05 16:11 | PCOTNOTE ---
Attempted to see pt for OT evaluation however pt declines activity stating she doesn't feel well after coming back from the MRI and requests to be seed tomorrow.
--- NOTE | 2025-09-05 19:08 | WPDCNPSYCH ---
Assessment and Plan Assessment and plan (1) Generalized anxiety disorder: Code(s): F41.1 - Generalized anxiety disorder Status: Acute Assessment and Plan: 1. Medication Start Sertraline 25 mg PO daily. Low initial dose chosen to minimize dizziness, orthostasis, and early activation. Educated patient on expected onset (4?6 weeks) and potential initial side effects. Plan for titration by PCP or psychiatric provider as tolerated (target range often 50?100 mg for anxiety). Avoid benzodiazepines given fall risk, age, and prior dizziness. 2. Psychotherapy Strongly encourage grief-focused psychotherapy and/or CBT for anxiety. Provided education on the role of therapy in managing unresolved grief and chronic worry . 3. Safety & Monitoring No acute safety concerns at this time (besides potential living conditions) Continue to monitor for hallucinations or confusion given reports from nursing staff. Monitor mood, anxiety, sleep, appetite, and functional ability. Encourage follow-up with psychiatric provider within 2?4 weeks for medication response and dose adjustment. 4. Social & Functional Support Discuss need for increased support at home due to fatigue and functional decline. Encourage involvement of friend Regan or community resources as appropriate. Consider referral for community aging services, care management, or in-home assistance if symptoms impact ADLs. 5. Medical Coordination Collaborate with primary care to: Review current medications for contributors to fatigue Monitor blood pressure (given her concerns with antihypertensives- they make her tired) Continue evaluation of fatigue and dizziness if persistent HPI Data of Consult Date/Time: 09/05/25 19:08 Requesting Physician: Konstantin Szymanski MD Primary Care Provider: Steve Angel MD Consult Narrative Narrative: Alejandrina is an 80 year old female, who presents for psychiatric evaluation due to worsening anxiety symptoms and functional decline. She reports a long-standing history of anxiety that has significantly worsened in the last several months. She denies confusion and is alert and oriented to person, place, and time. No perceptual disturbances were observed during the current interview; however, nursing staff report she has previously endorsed intermittent visual hallucinations. The patient describes increased worry, restlessness, and difficulty relaxing, consistent with her LI-7 score of 15, indicating severe generalized anxiety. She endorses persistent nervousness, excessive worrying about various topics, and trouble controlling these worries. She also reports fatigue, stating she ?wants to do things but then gets tired easily,? attributing this in part to her blood pressure medication. She notes that she often starts tasks but must sit down because of tiredness. She reports no panic attacks. She endorses several symptoms on the Gonzalez Depression Inventory (BDI score: 13), including sadness, anhedonia, indecisiveness (which she reports as long-standing), low energy, morning fatigue, weight loss, decreased interest in sex, and increased focus on physical concerns. She denies suicidal ideation, intent, or plan. Psychosocial history is notable for multiple profound losses. The patient lost one son to complications of diabetes and her second son to a heart attack approximately one year later. Her also during that period. She identifies one primary support, a friend named Regan. Following these losses, she discontinued prior volunteer activities and no longer engages with previous interests such as caring for dogs. She lives alone. She reports that her primary care physician attempted several antidepressant trials over the years, but she discontinued them prematurely due to perceived side effects, most notably dizziness. She is unable to recall which medications she previously tried. During today?s evaluation, she is cooperative and agreeable to medication re-initiation. After discussion of risks, benefits, and the need for slow titration due to sensitivity to side effects, she agrees to start sertraline 25 mg daily, with instructions to follow up with psychiatry or her PCP for continued titration as tolerated. She is also encouraged to begin psychotherapy for grief and anxiety management. She denies current hallucinations, delusions, paranoia, suicidal ideation, homicidal ideation, or other acute psychiatric concerns during the encounter. . Review of Systems Psychiatric: Psychiatric: Reports anxiety PMFSH Past Medical History Medical History Bilateral knee pain Lumbar back pain with radiculopathy affecting right lower extremity Seasonal allergies Arthralgia Menopause (~1999) Anxiety and depression (~1973) HLD (hyperlipidemia) (~2009) Benign essential hypertension (~1968) GERD without esophagitis (~2015) Surgical History Surgical History S/P arthroscopy of knee (~1997) right S/P vaginal hysterectomy (~1984) S/P tonsillectomy (~1960) Family History Family History Mother Hypertension Grandparent Hypertension Diabetes mellitus Father Black lung disease Grandparent Diabetes mellitus Sibling Cancer Mother Hypertension Family history of elevated blood lipids Family history of arthritis Sibling Family history of lupus erythematosus Hypertension Family history of malignant neoplasm, Onset Age: 70 Grandparent Hypertension, Onset Age: 80 Cerebrovascular accident Diabetes mellitus, Onset Age: 80 Family history of arthritis, Onset Age: 80 Father Family history of emphysema, Onset Age: 80 Patient's father is , Onset Age: 80 Other Family history of diabetes mellitus in first degree relative Social History Social History Social History: (2019) Smoking status: Never smoker Second hand tobacco smoke exposure: No Alcohol intake: never Substance use: never Substance use type: does not use Lack of Transportation: No Lack of Food: Never True Current Housing: I Have Housing Concerned About Future Housing: No Difficulty Paying Gas/Electric Bills: No Difficulty Paying for Meds: No Currently Unemployed: No Education: High School Diploma/GED Difficulty w/ Childcare or Family Care: No Living arrangements: with family Occupation/Education: retired Gender identity (if verbalized by the patient): Female Sexual Orientation (if Verbalized by the Patient): Straight or Heterosexual Spiritual care concerns: No Agree to blood products: Yes Meds Home Medications and Allergies Home Medications ?Medication ?Instructions ?Recorded ?Confirmed ?Type epinephrine 0.3 mg/0.3 mL 0.3 mg (0.3 mL) IM ONCE #2 ea 03/22/22 09/04/25 Rx injection, auto-injector (EpiPen 2-Liu) cholecalciferol (vitamin D3) 50 50 mcg PO DAILY #1 cap 04/29/22 09/04/25 Rx mcg (2,000 unit) capsule alprazolam 0.25 mg tablet 0.25 mg PO DAILY PRN anxiety #30 02/14/25 09/04/25 Rx tabs mecobalamin (vitamin B12) 1,000 1,000 mcg sublingual DAILY #90 tabs 07/04/25 09/04/25 Rx mcg disintegrating tablet,sublingual losartan 100 mg tablet 100 mg PO DAILY #90 tabs 10/20/25 12/07/25 Rx pantoprazole 40 mg tablet,delayed 40 mg PO DAILY #90 tabs 07/18/25 09/04/25 Rx release Allergies Allergy/AdvReac Type Severity Reaction Status Date / Time bee venom protein (honey bee) Allergy Intermediate Anaphylaxis Verified 09/04/25 15:51 eplerenone AdvReac Mild tingling Verified 09/04/25 15:51 in mouth Vital Signs Vital Signs - 24 hr 09/04/25 19:56 09/04/25 20:00 09/05/25 05:27 Temperature 97.5 F L 97.3 F L Pulse Rate 61 61 62 Respiratory Rate 16 16 16 Blood Pressure 145/67 H 171/84 H Pulse Oximetry 100 100 99 Oxygen Delivery Room Air 09/05/25 08:00 09/05/25 14:00 Temperature 97.4 F L Pulse Rate 69 Respiratory Rate 15 Blood Pressure 129/67 Pulse Oximetry 99 Oxygen Delivery Room Air Exam Psych: Appearance: well kempt (in hospital gown and clean) Speech and movement: Normal speech and movement present and Clear speech present Affect: normal affect Attitude: cooperative Thought process: Normal thought process present Thought content: Yes Normal thought content present Insight: Fair insight present (Psych) Judgement: Fair judgement present (Psych) Results Labs 09/05/25 04:52 09/05/25 04:52 Labs: Short CBC 09/05/25 Range/Units 04:52 WBC 5.9 (4.5-10.0) K/mm3 Hgb 11.8 L (12.0-15.0) g/dL Hct 36.8 L (37.0-47.0) % Plt Count 319 (150-375) k/mm3 [facility] 09/05/25 04:52 Sodium 137 Potassium 2.9 L Chloride 105 Carbon Dioxide 26 BUN 13 Creatinine 1.07 H Glucose 92 Calcium 9.0
[2025-09-05 20:25] VITALS: BP 154/75; PULSE 64; RESP 20; TEMP 36.4; O2SAT 98
[2025-09-06 04:25] VITALS: BP 166/63; PULSE 60; RESP 14; TEMP 35.9; O2SAT 98
--- NOTE | 2025-09-06 08:07 | P.PNIM_ITS ---
Assessment and Plan Assessment and Plan (1) Anxiety and depression: Onset Date: ~1973 Code(s): F41.9 - Anxiety disorder, unspecified; F32.9 - Major depressive disorder, single episode, unspecified Status: Chronic Assessment and Plan: 80-year-old female with PMH arthralgia, depression and anxiety, hyperlipidemia, hypertension, GERD without esophagitis presents for hallucinations, anxiety/depression, hoarding behavior. * Patient unsafe to return home * and son recently and she has a stressful time with that as well as inheriting her son's finances and she does not know how to handle them * Denies suicidal/homicidal ideation * Viral panel negative * vitamin B12 >1,000, continue cyanocobalamin * Xanax p.r.n * HIV negative, syphilis& ceruloplasmin pending * MRI brain: No acute ischemic event, mass or bleed; no abnormal enhancing lesions or masses. There is extensive T2 weighted hyperintense periventricular white matter changes in both hemispheres probably associated with chronic microvascular ischemic changes. 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 q.day (5) HLD (hyperlipidemia): Onset Date: ~2009 Qualifiers: Hyperlipidemia type: unspecified Qualified Code(s): E78.5 - Hyperlipidemia, unspecified Code(s): E78.5 - Hyperlipidemia, unspecified Status: Chronic Assessment and Plan: * Not currently on statin (6) GERD without esophagitis: Onset Date: ~2015 Code(s): K21.9 - Gastro-esophageal reflux disease without esophagitis Status: Chronic Assessment and Plan: * Continue [employer] Protonix Subjective Date/time seen: 09/06/25 08:07 Interval history: 80-year-old female with PMH arthralgia, depression and anxiety, hyperlipidemia, hypertension, GERD without esophagitis presents to hospital, patient lives alone. A friend has been worried about her. 09/06/2025 Patient sitting comfortably at bedside during examination. Psychiatry evaluated patient - started her on 25mg Sertraline PO daily, plan for titration by PCP or psych provider as tolerated, advise avoid benzodiazepine. Urine culture that was obtained by PCP shows growth of MRSA - discussed with ID pharmacist who recommends obtaining BCs to rule out descending bloodstream infection. She remains afebrile without leukocytosis. Review of Systems Review of Systems: All systems reviewed & are unremarkable except as noted in HPI and below (Subjective) Exam Const: General: comfortable and no acute distress Other: A&O x4 HENMT: Mouth: Yes moist mucous membranes Eyes: Pupils: Equal, round and reactive pupils present Neck: Neck: supple Resp: Effort & Inspection: normal respiratory effort Auscultation: clear to auscultation bilaterally Cardio: Rate: regular rate Rhythm: regular rhythm GI: Inspection: non-distended : General: Yes bladder normal to palpation Bimanual exam- vagina & uterus: bladder normal to palpation Neuro: General: deep tendon reflexes 2+ bilaterally Cranial nerves: Yes Equal, round and reactive pupils present Speech: normal speech Motor exam (neuro): 5/5 motor strength present throughout Sensory Exam: normal sensation Extrem: General: no edema Psych: Mental Status: mental status grossly normal Objective Data Vital Signs Vital Signs: Vital Signs - 24 hr 09/05/25 14:00 09/05/25 20:25 09/05/25 22:20 Temperature 97.4 F L 97.6 F Pulse Rate 69 64 Respiratory Rate 15 20 Blood Pressure 129/67 154/75 H Pulse Oximetry 99 98 Oxygen Delivery Room Air 09/06/25 04:25 Temperature 96.7 F L Pulse Rate 60 Respiratory Rate 14 Blood Pressure 166/63 H Pulse Oximetry 98 Oxygen Delivery Intake/Output Intake/Output: Intake & Output 09/03/25 09/04/25 09/05/25 09/06/25 23:59 23:59 23:59 23:59 Intake Total 1585 240 Output Total 0 Balance 0 1585 240 Meds/Results Medications: Active Medications Generic Name Dose Route Start Last Admin Trade Name Edgardo PRN Reason Stop Dose Admin Alprazolam 0.25 mg 09/04/25 21:27 09/05/25 12:12 Alprazolam (*Crx) 0.25 Mg Tablet PO 0.25 mg DAILY PRN Administration Anxiety Cyanocobalamin 1,000 mcg 09/05/25 09:00 09/05/25 08:15 Cyanocobalamin 1,000 Mcg Tablet PO 1,000 mcg QAM SHADY Administration Levofloxacin/Dextrose 750 mg in 150 mls @ 100 mls/hr 09/06/25 09:00 Levaquin 750 Mg/D5w 150 Ml IVPB Q48HR SHADY Losartan Potassium 100 mg 09/05/25 09:00 09/05/25 08:15 Losartan Potassium 100 Mg Tablet PO 100 mg DAILY SHADY Administration Pantoprazole Sodium 40 mg 09/05/25 09:00 09/05/25 08:15 Pantoprazole 40 Mg Tablet PO 40 mg DAILY SHADY Administration Sertraline HCl 25 mg 09/06/25 09:00 Sertraline Hcl 25 Mg Tablet PO QAM SHADY Vitamin D 50 mcg 09/05/25 09:00 09/05/25 08:15 Cholecalciferol (Vitamin D3) 25 Mcg (1,000 Units) Tablet PO 50 mcg DAILY SHADY Administration Radiology Results: ITS Impressions Head CT 09/04/25 10:16 IMPRESSION: 1. No acute intracranial findings. Chest X-Ray 09/04/25 11:50 IMPRESSION: 1. No acute cardiopulmonary findings given portable technique. Brain MRI 09/05/25 12:58 IMPRESSION: No acute ischemic event, mass or bleed; no abnormal enhancing lesions or masses. There is extensive T2 weighted hyperintense periventricular white matter changes in both hemispheres probably associated with chronic microvascular ischemic changes. Labs Labs: Laboratory Results - last 24 hr 09/05/25 04:52 Ceruloplasmin 21.6
[2025-09-06 08:44] LABS: Hematocrit 38.4 % (37.0-47.0); Hemoglobin 12.3 g/dL (12.0-15.0); Immature Granulocyte Percent A 0.4 % (0-0.5); Lymphocytes Absolute Auto 1.65 K/mm3 (0.9-3.2); Mean Corpuscular HGB Conc 32.0 g/dl (32-36); Mean Corpuscular Hemoglobin 30.1 pg (26-34); Mean Corpuscular Volume 93.9 fl (80-100); Nucleated Red Blood Cells Absolute Auto 0.000 K/mm3 (0.0-0.012); Nucleated Red Blood Cells Perc 0.0 % (0.0-0.2); Platelet Count Result 337 k/mm3 (150-375); Red Blood Count 4.09 M/mm3 (4.2-5.4); White Blood Count 5.7 K/mm3 (4.5-10.0)
[2025-09-06] MEDS: SERTRALINE HCL 25 MG TABLET PO (08:50)
[2025-09-06] MEDS: PANTOPRAZOLE 40 MG TABLET PO (08:50)
[2025-09-06] MEDS: LOSARTAN POTASSIUM 100 MG TABLET PO (08:50)
[2025-09-06] MEDS: CYANOCOBALAMIN 1,000 MCG TABLET 1000 MCG PO (08:50)
[2025-09-06] MEDS: levoFLOXacin 750 MG/D5W 150 ML 750 MG/150 ML BAG 100 MG IVPB (08:51)
[2025-09-06] MEDS: CHOLECALCIFEROL (VITAMIN D3) 25 MCG (1,000 UNITS) TABLET 50 MCG PO (09:00)
[2025-09-06 09:06] LABS: Alanine Aminotransferase 15 U/L (6-35); Albumin Level 3.7 g/dL (3.5-5.1); Alkaline Phosphatase 100 U/L (38-126); Anion Gap 6 mmol/L (4-12); Aspartate Amino Transferase 24 U/L (14-36); Bilirubin,Total 0.8 mg/dL (0.2-1.3); Blood Urea Nitrogen 12 mg/dL (7-17); Calcium 9.3 mg/dL (8.4-10.2); Carbon Dioxide 29 mmol/L (22-30); Chloride 104 mmol/L (98-107); Estimated CRCL calculation 38 ml/min; Estimated Glomerular Filt Rate > 60; Glucose 92 mg/dL (65-110); Potassium 3.4 mmol/L (3.4-5.0); Sodium 139 mmol/L (137-145); Total Protein 6.9 g/dL (6.3-8.2)
[2025-09-06] MEDS: ALPRAZolam (*CRX) 0.25 MG TABLET PO (11:34)
[2025-09-06 14:00] VITALS: BP 127/67; PULSE 71; RESP 15; TEMP 36.4; O2SAT 98
[2025-09-06 20:32] VITALS: BP 159/63; PULSE 62; RESP 16; TEMP 36.5; O2SAT 99
[2025-09-06 22:28] VITALS: O2SAT 99
[2025-09-07 04:08] VITALS: BP 160/76; PULSE 66; RESP 16; TEMP 36.4; O2SAT 99
[2025-09-07 06:06] LABS: Hematocrit 35.1 % (37.0-47.0); Hemoglobin 11.7 g/dL (12.0-15.0); Immature Granulocyte Percent A 0.4 % (0-0.5); Lymphocytes Absolute Auto 1.52 K/mm3 (0.9-3.2); Mean Corpuscular HGB Conc 33.3 g/dl (32-36); Mean Corpuscular Hemoglobin 30.9 pg (26-34); Mean Corpuscular Volume 92.6 fl (80-100); Nucleated Red Blood Cells Absolute Auto 0.000 K/mm3 (0.0-0.012); Nucleated Red Blood Cells Perc 0.0 % (0.0-0.2); Platelet Count Result 299 k/mm3 (150-375); Red Blood Count 3.79 M/mm3 (4.2-5.4); White Blood Count 5.7 K/mm3 (4.5-10.0)
[2025-09-07 06:36] LABS: Alanine Aminotransferase 13 U/L (6-35); Albumin Level 3.4 g/dL (3.5-5.1); Alkaline Phosphatase 91 U/L (38-126); Anion Gap 4 mmol/L (4-12); Aspartate Amino Transferase 23 U/L (14-36); Bilirubin,Total 0.6 mg/dL (0.2-1.3); Blood Urea Nitrogen 12 mg/dL (7-17); Calcium 9.2 mg/dL (8.4-10.2); Carbon Dioxide 26 mmol/L (22-30); Chloride 105 mmol/L (98-107); Estimated CRCL calculation 37 ml/min; Estimated Glomerular Filt Rate 59; Glucose 94 mg/dL (65-110); Potassium 3.4 mmol/L (3.4-5.0); Sodium 135 mmol/L (137-145); Total Protein 6.3 g/dL (6.3-8.2)
[2025-09-07] MEDS: LOSARTAN POTASSIUM 100 MG TABLET PO (08:57)
[2025-09-07] MEDS: CYANOCOBALAMIN 1,000 MCG TABLET 1000 MCG PO (08:57)
[2025-09-07] MEDS: PANTOPRAZOLE 40 MG TABLET PO (08:57)
[2025-09-07] MEDS: SERTRALINE HCL 25 MG TABLET PO (08:57)
[2025-09-07 08:58] VITALS: RESP 16; O2SAT 99
[2025-09-07] MEDS: CHOLECALCIFEROL (VITAMIN D3) 25 MCG (1,000 UNITS) TABLET 50 MCG PO (08:58)
--- NOTE | 2025-09-07 13:18 | P.DS_ITS ---
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 Status: Acute (3) UTI (urinary tract infection): Code(s): N39.0 - Urinary tract infection, site not specified Status: Acute (4) Benign essential hypertension: Onset Date: ~1968 Code(s): I10 - Essential (primary) hypertension Status: Chronic (5) HLD (hyperlipidemia): Onset Date: ~2009 Qualifiers: Hyperlipidemia type: unspecified Qualified Code(s): E78.5 - Hyperlipidemia, unspecified Code(s): E78.5 - Hyperlipidemia, unspecified Status: Chronic (6) GERD without esophagitis: Onset Date: ~2015 Code(s): K21.9 - Gastro-esophageal reflux disease without esophagitis Status: Chronic DS: Summary Hospital Course Reason for hospitalization: Altered mental status Hospital Course: The patient is an 80-year-old female with a history of anxiety, depression, hypertension, hyperlipidemia, GERD, and chronic arthralgia who was admitted for altered mental status, functional decline, and concerns for self-neglect. She was brought to the hospital after a friend noted significant changes in her behavior, including frequent inappropriate phone calls, poor self-care, and reports of visual and auditory hallucinations. On admission, she was disheveled and malodorous but alert and oriented, with insight into her hallucinations. Initial workup revealed no acute findings on head CT or chest X-ray. Laboratory studies were notable for mild anemia, hypokalemia, and urinalysis suggestive of a urinary tract infection (UTI). A prior outpatient urine culture grew MRSA, and she was started on intravenous levofloxacin per infectious disease recommendations. MRI brain showed extensive periventricular white matter changes consistent with chronic microvascular ischemic disease, but no acute pathology. Psychiatric evaluation confirmed severe generalized anxiety (LI-7 score 15) and moderate depressive symptoms (BDI score 13), with prominent grief and functional decline following the recent deaths of her and two sons. She denied current hallucinations, delusions, or suicidal ideation during the hospital stay. She was started on sertraline 25 mg daily with plans for slow titration, and benzodiazepines were avoided due to fall risk. She was encouraged to pursue grief-focused psychotherapy and cognitive behavioral therapy. Her home medications, including losartan, pantoprazole, vitamin D, and cyanocobalamin, were continued. Additional workup for reversible causes of neurocognitive decline (vitamin B12, HIV, syphilis, ceruloplasmin) was unremarkable. The patient remained hemodynamically stable and afebrile throughout her stay, with no evidence of acute infection or delirium. Discharge planning focused on ensuring safety, medication management, and arranging outpatient psychiatric and social support, given her ongoing functional limitations and lack of adequate support at home. Discussed the case with case management who talked with the patient's close friend who states they plan on setting her up at an assisted living facility once they get her home. Pt can be discharged at this time. Status at Discharge Functional status at discharge: uses cane/walker Overall status at discharge: patient is progressing back to baseline Time Spent with Patient Time attestation: Total time spent providing and/or coordinating discharge services: 31 Exam Const: General: comfortable and no acute distress Other: A&O x4 HENMT: Mouth: Yes moist mucous membranes Eyes: Pupils: Equal, round and reactive pupils present Neck: Neck: supple Resp: Effort & Inspection: normal respiratory effort Auscultation: clear to auscultation bilaterally Cardio: Rate: regular rate Rhythm: regular rhythm GI: Inspection: non-distended : General: Yes bladder normal to palpation Bimanual exam- vagina & uterus: bladder normal to palpation Neuro: General: deep tendon reflexes 2+ bilaterally Cranial nerves: Yes Equal, round and reactive pupils present Speech: normal speech Motor exam (neuro): 5/5 motor strength present throughout Sensory Exam: normal sensation Extrem: General: no edema Psych: Mental Status: mental status grossly normal DS: Data Data Completed and Pending Labs on day of discharge: Labs from last 24 hours 09/07/25 09/05/25 05:56 04:52 WBC 5.7 RBC 3.79 L Hgb 11.7 L Hct 35.1 L MCV 92.6 MCH 30.9 MCHC 33.3 RDW 13.3 Plt Count 299 MPV 10.3 Immature Gran % (Auto) 0.4 Neut % (Auto) 56.6 Lymph % (Auto) 26.9 [facility] % (Auto) 9.2 H Eos % (Auto) 5.8 H Baso % (Auto) 1.1 Lymph # (Auto) 1.52 [facility] # (Auto) 0.5 Eos # (Auto) 0.3 Baso # (Auto) 0.1 Abs Immat Gran (auto) 0.02 Absolute Neuts (auto) 3.2 Absolute Nucleated RBC 0.000 Nucleated RBC % 0.0 Sodium 135 L Potassium 3.4 Chloride 105 Carbon Dioxide 26 Anion Gap 4 BUN 12 Creatinine 0.91 Estim Creat Clear Calc 37 Estimated GFR 59 Glucose 94 Calcium 9.2 Total Bilirubin 0.6 AST 23 ALT 13 Alkaline Phosphatase 91 Total Protein 6.3 Albumin 3.4 L Treponema pallidum Ab Non reactive Discharge Plan Discharge Attending physician on discharge: Jurgen Braga Consulting providers: Mario Alonso; Ehsan Ballard Discharging Clinician: Mario Alonso Anticipated Discharge Date/Time: 09/07/25 13:08 Patient Disposition: Home Activity: as tolerated Diet: regular Discharge Instructions: Discharge disposition: Home Take medications as prescribed. You will be prescribed Sertraline for you anxiety. You are advised to follow up with Psychiatry in approximately 1 month for further adjustment/management of your medication. Monitor blood pressures Take caution while standing, rising, or moving Change positions slowly taking a break between each position change If you standing feel dizzy sit back down and take a break Encouraged to continue with yearly vaccinations Return to the emergency department if you develop sudden shortness of breath, chest pain, nausea, vomiting, upset stomach or intractable diarrhea Return to the emergency department if you develop fever greater than 101.5 Follow-up with the primary care physician within 1-2 weeks Follow up with Psychiatry in 3-4 weeks regarding further management of your Sertraline. Thank you for choosing [facility] for your healthcare needs Patient Instructions: Antibiotic Form Patient Language: Hungarian Stand Alone Forms: General Discharge Information Follow-up/Referrals: Truong Clemens, [employer] MANAGER [Advanced Practice Nurse, Psychiatry] - 2 Weeks Referral Note: follow up after initiation of Sertraline 25 mg daily for anxiety Parth Angel MD [Primary Care Provider, Family Practice] Discharge Medications: New sertraline [Zoloft] 50 mg Tablet 25 mg PO QAM Qty: 30 0RF Continued epinephrine [EpiPen 2-Liu] 0.3 mg/0.3 mL auto-injector 0.3 mg IM ONCE Qty: 2 0RF Rx Instructions: as a single dose cholecalciferol (vitamin D3) 50 mcg (2,000 unit) capsule 50 mcg PO DAILY Qty: 1 0RF alprazolam 0.25 mg tablet 0.25 mg PO DAILY PRN (Reason: anxiety) Qty: 30 1RF mecobalamin (vitamin B12) 1,000 mcg tablet,disintegrating 1,000 mcg sublingual DAILY Qty: 90 1RF Rx Instructions: place tablet under tongue and allow to dissolve for at least30 secs before swallowing pantoprazole 40 mg tablet,delayed release (DR/EC) 40 mg PO DAILY Qty: 90 1RF losartan 100 mg tablet 100 mg PO DAILY Qty: 90 1RF Date of admission: 09/04/25 12:55 Primary Care Provider: Parth Angel Admitting Provider: Konstantin Szymanski Attending physician on admission: Konstantin Szymanski Condition: Stable
== END 2025-09-07 14:30 | disposition home or self-care (01) ==
LOC: ANHED 13:11 → ANH3MEDSUR 14:08 → ANH2MED 14:51
PROVIDERS: Emergency Medicine; General Practice; Student in an Organized Health Care Education/Training Program; Admitting Provider Family Medicine; Emergency Provider Emergency Medicine; PCP Family Medicine; Visit Provider Physician Assistant
DX: F41.9 Anxiety disorder, unspecified (principal); F32.9 Major depressive disorder, single episode, unspecified; F42.3 Hoarding disorder; R41.9 Unspecified symptoms and signs involving cognitive functions and awareness; E87.6 Hypokalemia; N39.0 Urinary tract infection, site not specified; I67.82 Cerebral ischemia; F41.8 Other specified anxiety disorders; I10 Essential (primary) hypertension; E78.5 Hyperlipidemia, unspecified; K21.9 Gastro-esophageal reflux disease without esophagitis; Z20.822 Contact with and (suspected) exposure to COVID-19; Z90.710 Acquired absence of both cervix and uterus; Z82.49 Family history of ischemic heart disease and other diseases of the circulatory system; Z83.3 Family history of diabetes mellitus; Z82.61 Family history of arthritis; Z80.9 Family history of malignant neoplasm, unspecified; Z82.3 Family history of stroke; Z82.69 Family history of other diseases of the musculoskeletal system and connective tissue; Z83.438 Family history of other disorder of lipoprotein metabolism and other lipidemia; B95.62 Methicillin resistant Staphylococcus aureus infection as the cause of diseases classified elsewhere
CPT/HCPCS: 36415; 70450; 70553; 71045; 80048; 80053; 80143; 80179; 80307; 81001; 82077; 82306; 82390; 82607; 83735; 84443; 85025; 85610; 85730; 86703; 86780; 87040; 87086; 87637; 93005; 96374; 97161; 97166; 97530; 97535; 99285; A9270; A9577; G0378; G0432; J1956